=== PATIENT | male | born 1995 | race Caucasian/White ===

== ENCOUNTER 2024-09-01 13:17 | Inpatient (IN) | payer OTHER, SELFPAY ==
[2024-09-01] VITALS (22 sets, daily range): BP systolic 74–161; BP diastolic 88–113; BMI 26.2
--- NOTE | 2024-09-01 08:11 | ED.GENMED ---
History of Present Illness
General
Chief Complaint: Catheter/Tube Problem
Time Seen by Provider: 09/01/24 07:43
History of Present Illness
History of Present Illness:
Patient is a 28-year-old male with history of ESRD on Thursday dialysis., Hypertension, hyperlipidemia, on Eliquis secondary to clotting issues she has had with his catheter/fistulas presenting to the emergency department with
problem with his AV graft. Patient states that he has had many procedures at [facility] for his dialysis. He came here for second opinion. States that he has had 2 right upper extremity specialist that have failed. Last March he had a HD
catheter placed in his right groin that they were using while his AV graft matured. In July he started using his AV graft. They stated that his HD catheter was supposed to be removed next week. However, it also has been having issues with
clotting and heparin did not work. He last received dialysis on Thursday. He denies any chest pain shortness of breath or feeling overloaded.
Past History
Past History
ED Past Medical History: None
ED Past Surgical History: None
Social History
Tobacco: Smoker
Alcohol: None
Phy Exam
Physical Exam
Physical Exam:
GENERAL: in no acute distress
HEENT: normocephalic, extraocular movements intact, moist oral mucosa
NECK: normal inspection
RESPIRATORY: no respiratory distress, clear to auscultation bilaterally
CARDIOVASCULAR: regular rate and rhythm
ABDOMEN/: soft, non-distended, non-tender to palpation, no rebound or guarding
EXTREMITIES: Right upper extremity skin intact with normal appearance. No obvious bulging. No tenderness to palpation. No palpable thrill.
NEUROLOGIC: awake and alert, moves all extremities
SKIN: warm
Course
Orders/Labs/Results
Orders:
Orders
09/01/24 08:11
Complete Blood Count/With Diff Urgent
09/01/24 08:57
Basic Metabolic Panel Urgent
09/01/24 09:37
Electrocardiogram (*1) Urgent
Reason for Study: Other
Other Reason for Exam: hyperkalemia
EKG- Treatment ONCE
09/01/24 09:38
Dextrose 50%-Water [Dextrose 50% Syringe] 12.5 grams IV [id number] PRN
Dextrose 50%-Water [Dextrose 50% Syringe] 25 grams IV NOW STA
Furosemide [Lasix] 20 mg IV NOW STA
Insulin Human Regular [Novolin R] 5 units IV NOW STA
Sodium Zirconium Cyclosilicate [Lokelma] 10 gram PO NOW STA
Bedside Glucose PRE IV Insulin- HyperK+ NOW
09/01/24 10:02
Calcium Gluconate 1,000 mg IV NOW STA
09/01/24 11:00
Records Request [Obtain Records] As Directed
Dates of Information to be Released: 06/08/23-present
Type of Information Requested: Discharge Summary
Consults
Last Office Visit H&P
Radiology Results
Obtain Records from: [facility]
09/01/24 11:08
Bedside Glucose POST IV Insulin- HyperK+ Q1HX2,Q2HX2
09/01/24 11:34
Potassium Urgent
Comment: draw 2 hours after regular insulin IV administration
09/01/24 11:35
Consult Interventional Radiology [IRAD CONSULT] Urgent
Consulting Provider: Melvin Chowdhury
Was physician already notified: Yes
Reason for Consult/Procedure: HD catheter insertion
Acknowledgement that appropriate orders are entered: Yes
09/01/24 11:36
NEPHROLOGY CONSULT Routine
Consulting Provider: Loy Robertson
Was physician already notified: Yes
Vascular Surgery Consult Routine
Consulting Provider: Hector Her
Was physician already notified: Yes
09/01/24 11:37
Admit/Transfer Patient As Directed
Co-Sign Provider:
Level of Care: Inpatient admission
Assign to:: Telemetry
Physician / Group: igor barnhatr
Diagnosis: Clogged graft, ESRF
Reason for Telemetry: Medication for Arrhythmia
Date to Stop Telemetry: 09/03/24
Time to Stop Telemetry: 11:00
Reason for Hospitalization: Clogged graft, ESRF
Expected length of stay greater than two midnights?: Yes
ELOS- Estimated Length of Stay in days: 2
I certify the patient meets the requirements for IP care: Yes
PRN Pain Medication Management As Directed
May give lesser potent ordered pain med per pt: Yes
preference::
Protocol:: Medication orders for pain may be administered in a
manner that supports deferring to patient preference
when the pt is:
- Requesting an ordered lesser potent pain medication.
Least to most potent pain medications are defined
as: acetaminophen < NSAID < tramadol < opioids
(morphine, oxycodone, hydromorphone).
- Requesting a lesser dose of the same medication IF
ORDERED.
- Requesting a less intrusive route of administration
if both routes are prescribed by the provider (PO <
IV).
09/01/24 11:39
Code Status As Directed
Resuscitation Status: Full Code
09/03/24 11:00
DC Protocol for Telemetry ONCE
Abnormal Lab Results
09/01/24 09/01/24 09/01/24
08:11 08:57 11:18
RBC 3.69 L 10^6/uL
(4.70-6.10)
Hgb 11.5 L g/dL
(13.0-18.0)
Hct 35.0 L %
(39.0-52.0)
MCV 94.9 H fL
(80.0-94.0)
MCH 31.2 H pg
(27.0-31.0)
MCHC 32.9 L g/dL
(33.0-37.0)
RDW 15.0 H %
(11.5-14.5)
Potassium 6.3 H* mmol/L
(3.5-5.1)
Chloride 110 H mmol/L
(98-107)
Carbon Dioxide 20 L mmol/L
(22-30)
BUN 83 H mg/dl
(9-20)
Creatinine 7.7 H* mg/dL
(0.7-1.3)
POC Glucose 66 L mg/dl
(70-99)
09/01/24 08:11
Vital Signs
Initial and Last Documented VS:
Initial Vital Signs
Temp Pulse Resp BP Pulse Ox
97.7 F 79 16 161/113 98
09/01/24 07:39 09/01/24 07:39 09/01/24 07:39 09/01/24 07:39 09/01/24 07:39
Last Documented Vital Signs
Temp Pulse Resp BP Pulse Ox
97.7 F 94 20 138/96 100
09/01/24 07:39 09/01/24 11:15 09/01/24 11:15 09/01/24 11:00 09/01/24 10:30
MDM/Problems Addressed
Differential Diagnosis Includes:
Patient is a 28-year-old male with history of ESRD on Thursday dialysis with multiple issues with his dialysis access. Currently his issue is with a failed AV graft as well as a clotted HD catheter. Patient without any overt signs
of volume overload. Will check basic blood work to evaluate metabolic derangements and need for temporary HD catheter. I did discuss with vascular surgery who did recommend touching base with interventional radiology to see if they can declot the
fistula. Will hold off on any further imaging at this time given that there is no palpable thrill.
*Critical Care Note
Total Time (30-74mins, 75-104mins- exclusive of procedures): 37
comment:
Critical care statement: A total of 37 minutes of critical care time was provided for this patient. This includes management of unstable vital signs, evaluation of the patient at bedside, reviewing the patient's pertinent medical records, ordering
and reviewing studies, arranging urgent treatment with development of a management plan, evaluating patient's response to treatment, frequent reassessment, and discussion with consultants. This time was separate from time utilized to perform the
aforementioned documented procedures.
Update Note
Update Note:
Blood work is notable for potassium 6.3. Hyperkalemia protocol ordered. EKG per my interpretation with peaked T waves anteriorly. Will treat with calcium. His BUN is elevated at 83. Bicarb is 20. Patient will need admission for his
hyperkalemia. I did update vascular and discussed with hospitalist who accepted patient. Nephrology also made aware.
vascular will not complete declotting procedure today given the metabolic derangement. Recommending temporary HD catheter placement by nephrology or IR. I did update the hospitalist/nephrology. Unfortunately nephrology unable to place HD
catheter. Hospitalist will reach out to IR.
ED Attending Note
-
Portions of this chart may have been created with voice recognition software.� Occasional wrong word or��sound alike� substitutions may have occurred due to the inherent limitations of voice recognition software.
Discharge Plan
Departure
Patient Disposition: Admit
Date of Disposition: 09/01/24
Time of Disposition: 09:50
Presentation/result/management discussed w/ accepting MD/DO: Hospitalist
Discharge Problem:
Hyperkalemia, Problem with dialysis access
Prescriptions:
No Action
nifedipine 30 mg Tablet Extended Release
30 mg PO DAILY
torsemide 100 mg Tablet
100 mg PO QPM
lisinopril 40 mg Tablet
40 mg PO DAILY
calcium acetate(phosphat bind) 667 mg Capsule
667 mg PO QPM
Eliquis 2.5 mg Tablet
2.5 mg PO BID
atorvastatin 40 mg tablet
40 mg PO DAILY
Referrals:
UNKNOWN - PT DOES,NOT KNOW [Family Provider] -
Interventions
Interventions:
*Risk Screen - Suicide Last Done: 09/01/24 07:39
*General Assessment Last Done: 09/01/24 08:13
*Neglect/Abuse Screening Last Done: 09/01/24 07:39
*ED- Fall Risk Assessment Last Done: 09/01/24 08:13
*ED COVID-19 Vaccine History Last Done: 09/01/24 08:13
PO-Rvnrcv-Gnmdxqjtpr Assessment Last Done: 09/01/24 10:18
ED-Male Genitourinary Assessment Last Done: 09/01/24 10:18
Discharge Date and Time
Print Language: PERSIAN
[2024-09-01 08:33] LABS: % Basophils 0.6 % (0-2); % Eosinophils 2.4 % (0-6); % Immature Granulocytes 0.1 % (0-0.5); % Lymphocytes 25.4 % (20.5-51.1); % Monocytes 6.8 % (1.7-9.3); % Neutrophils 64.7 % (42.2-75.2); Absolute Basophils 0.1 10^3/uL (0-0.2); Absolute Eosinophils 0.2 10^3/uL (0-0.7); Absolute Lymphocytes 2.2 10^3/uL (1.2-3.4); Absolute Monocytes 0.6 10^3/uL (0.1-0.6); Absolute Neutrophils 5.6 10^3/uL (1.4-6.5); Hemoglobin 11.5 g/dL (13.0-18.0); Mean Corp Hgb Conc. 32.9 g/dL (33.0-37.0); Mean Corpuscular Hgb 31.2 pg (27.0-31.0); Mean Corpuscular Volume 94.9 fL (80.0-94.0); Nucleated Red Blood Cells % 0 % (-); Red Blood Cell Count 3.69 10^6/uL (4.70-6.10); White Blood Cell Count 8.6 10^3/uL (4.8-10.8)
[2024-09-01 09:34] LABS: Blood Urea Nitrogen 83 mg/dl (9-20); Calcium 9.6 mg/dl (8.4-10.2); Carbon Dioxide 20 mmol/L (22-30); Chloride 110 mmol/L (98-107); Estimated Creatinine Clearance 11 ml/min; Glucose 97 mg/dl (70-99); Potassium 6.3 mmol/L (3.5-5.1); Sodium 140 mmol/L (135-145); eGFR 9.02
[2024-09-01] MEDS: LOKELMA 10 GRAM PO (09:51)
[2024-09-01] MEDS: LASIX 20 MG IV (09:52)
[2024-09-01] MEDS: DEXTROSE 50% SYRINGE 25 GRAMS IV (09:52)
[2024-09-01] MEDS: NOVOLIN R 5 UNITS IV (10:00)
[2024-09-01] MEDS: CALCIUM GLUCONATE 1000 MG IV (10:11)
[2024-09-01 10:29] LABS: Platelet Count 304 10^3/uL (130-400)
--- NOTE | 2024-09-01 11:01 | HPS.HSE ---
Family Physician
-
Family Physician: NOT KNOW UNKNOWN - PT DOES
Chief Complaint
-
Clotted graft
History of Present Illness
28-year-old male with a past medical history of ESRF on HD, hypertension, hyperlipidemia, and suspected hypercoagulable disorder on Eliquis who presents with a clotted AV graft. Patient gets dialysis Thursday/Thursday/Thursday, his last dialysis
session was on Thursday. He reports having clots at that time, but he was able to complete his dialysis session. He was not able to go to his Thursday dialysis session yesterday. He has a history of repeated clots in his AV fistula, AV graft, as
well as stroke, suspicious for hypercoagulable disorder. He is currently on Eliquis 2.5 mg twice a day, reports missing only 1 dose last week. He does also smoke. Currently he denies chest pain, shortness of breath, palpitations. No fever, no
vomiting. No abdominal pain. No black or bloody stools.
Medical History
Past Medical History
Past Medical History: Reports Other
Additional Past Medical History:
End-stage renal failure on dialysis Thursday/Thursday/Thursday
Hypertension
Hyperlipidemia
Suspected hypercoagulable disorder
Past Surgical History: Reports Other
Additional Past Surgical History:
AV fistula x 2
AV graft right upper extremity
Right groin tunneled catheter
Social History
Tobacco: Smoker (1/2 ppd since 15 y/o)
Alcohol: None
Drug: Marijuana
Living: With Family
Family History
Family History: Other (No family history of renal failure, hypercoagulable disorders)
Allergies / Home Medications
Allergies reflects when Allergies were last updated in [employer].
Home Medications with original date entered in [employer]
Allergy/Medication List:
Allergies
Allergy/AdvReac Type Severity Reaction Status Date / Time
No Known Allergies Allergy Verified 09/01/24 07:41
Home Medications Table - record
�Medication �Instructions �Recorded �Confirmed
apixaban 2.5 mg tablet (Eliquis) 2.5 mg PO BID Blood Clot 09/01/24 09/01/24
Prevention/Tx
atorvastatin 40 mg tablet 40 mg PO DAILY High Cholesterol 09/01/24 09/01/24
calcium acetate(phosphat bind) 667 667 mg PO QPM Kidney Disease 09/01/24 09/01/24
mg capsule
lisinopril 40 mg tablet 40 mg PO DAILY Blood Pressure 09/01/24 09/01/24
nifedipine 30 mg tablet,extended 30 mg PO DAILY Blood Pressure 09/01/24 09/01/24
release
torsemide 100 mg tablet 100 mg PO QPM Fluid 09/01/24 09/01/24
Retention/Swelling
Review of Systems
-
A 12 point ROS was completed and negative except as noted: Yes
Physical Exam
Vital Signs
Vital Signs
Temp Pulse Resp BP Pulse Ox
97.7 F 92 20 144/103 100
09/01/24 07:39 09/01/24 10:12 09/01/24 10:12 09/01/24 10:12 09/01/24 10:12
Physical Exam
General: No Apparent Distress
HEENT: NormoCephalic, Anicteric and Moist mucous membranes
Respiratory: Clear
Cardiac: S1/S2 and Regular Rhythm
GI: Soft, Non Tender and Non Distended
Musculoskeletal: No Clubbing, No Cyanosis and No Edema
Neuro: Awake, Alert and Oriented
Psych: Calm
Laboratory Results
-
09/01/24 08:11
Impression/Plan
-
HPI: 28-year-old male with a past medical history of ESRF on HD, hypertension, hyperlipidemia, and suspected hypercoagulable disorder on Eliquis who presents with a clotted AV graft. Patient gets dialysis Thursday/Thursday/Thursday, his last dialysis
session was on Thursday. He reports having clots at that time, but he was able to complete his dialysis session. He was not able to go to his Thursday dialysis session yesterday. He has a history of repeated clots in his AV fistula, AV graft, as
well as stroke, suspicious for hypercoagulable disorder. He is currently on Eliquis 2.5 mg twice a day, reports missing only 1 dose last week. He does also smoke. Currently he denies chest pain, shortness of breath, palpitations. No fever, no
vomiting. No abdominal pain. No black or bloody stools.
#End-stage renal failure on dialysis Thursday/Thursday/Thursday
Consult IR for temporary HD catheter insertion
Consult nephrology, dialysis as per nephrology
Obtain records from [facility], continue calcium acetate
#Hyperkalemia
Potassium 6.3, EKG without any changes
Status post IV insulin, dextrose, and Lokelma in the ER
Will receive dialysis after HD catheter insertion
#Clotted AV graft
Appreciate vascular surgery input, for probable OR tomorrow
#Suspected hypercoagulable state on Eliquis
Hold Eliquis
IV heparin drip
Consult hematology
#Essential hypertension
Continue lisinopril 40 mg daily, nifedipine 30 mg daily
#Hyperlipidemia
Continue statin
DVT prophylaxis�IV heparin drip
Full code
Total time spent to see the patient on the floor, examine the patient, review data and lab results, discuss treatment plan with patient, nursing staff around 78 minutes.
[2024-09-01] MEDS: DEXTROSE 50% SYRINGE 12.5 GRAMS IV (11:20)
[2024-09-01 11:21] LABS: Glucose - Point of Care 66 mg/dl (70-99)
--- NOTE | 2024-09-01 11:46 | CON.VAS ---
Consultation
Consultation Request
Performing Provider: Arden
Reason for Consultation: Thrombosed AV graft
Medical History
-
Chief Complaint: 'Clotted fistula'
History of Present Illness:
28-year-old male with past medical history end-stage renal disease on HD (for about a year), longstanding uncontrolled hypertension, polysubstance abuse, CVA in 2022. Patient presents to the ER today for 'clotting issue' with his AV graft. Patient
gets dialysis Thursday, Thursday, Thursday. Patient had last treatment on Thursday where he states they were having some 'clotting issues' which were resolved and he received a full treatment. That was his last treatment. Patient has had 'many
procedures' at [facility] for dialysis needs. He states that he has had 2 right upper extremity fistulas fail. Last March had an HD catheter placed to the right groin. His most recent surgery was for his right upper extremity graft which is what
they began using at dialysis in July. It has worked well until this week. The patient his right groin catheter is also clotted. Patient is left-hand dominant. Patient is on Eliquis 2.5 mg p.o. twice daily which she states he only missed 1
dose of last week.
Vascular consult for thrombosed AV graft. Patient seen at bedside this a.m. with Dr. Her.
Past Medical History
Past Medical History: Other (End-stage renal disease on HD, longstanding uncontrolled hypertension, polysubstance abuse, CVA, clotting disorder?)
Past Surgical History: Other (AV fistula x 2, AV graft right upper extremity, tunneled catheter right groin)
Social History
Tobacco: Smoker
Drug: Other (Methamphetamines, cocaine unsure if current user)
Family History
Family History: Reviewed & Not Pertinent
Allergies / Home Medications
Allergy/AdvReac Type Severity Reaction Status Date / Time
No Known Allergies Allergy Verified 09/01/24 07:41
�Medication �Instructions �Recorded �Confirmed �Type
apixaban 2.5 mg tablet (Eliquis) 2.5 mg PO BID Blood Clot 09/01/24 09/01/24 History
Prevention/Tx
atorvastatin 40 mg tablet 40 mg PO DAILY High Cholesterol 09/01/24 09/01/24 History
calcium acetate(phosphat bind) 667 667 mg PO QPM Kidney Disease 09/01/24 09/01/24 History
mg capsule
lisinopril 40 mg tablet 40 mg PO DAILY Blood Pressure 09/01/24 09/01/24 History
nifedipine 30 mg tablet,extended 30 mg PO DAILY Blood Pressure 09/01/24 09/01/24 History
release
torsemide 100 mg tablet 100 mg PO QPM Fluid 09/01/24 09/01/24 History
Retention/Swelling
Review of Systems
-
History Source: Patient
All other systems: Negative unless noted
Vascular: Reports Other; Denies Leg Pain / Claudication, Numbness or Tingling
Skin: Reports No Symptoms
Physical Exam
Vital Signs
Temp Pulse Resp BP Pulse Ox
97.7 F 94 20 138/96 100
09/01/24 07:39 09/01/24 11:15 09/01/24 11:15 09/01/24 11:00 09/01/24 10:30
Lab Results
09/01/24 08:11
Physical Exam
General: No Apparent Distress
HEENT: Normocephalic and Atraumatic
Respiratory: Non Labored Respirations
Cardiac: Other (Palpable radial pulses); Negative JVD
Skin: Warm
Neuro: Awake, Alert and Oriented
Psych: Calm
Assessment / Plan
-
Plan/ Thrombosed right upper extremity AV graft. Repeated thrombosis of AV access raises concern for clotting disorders. Patient also does note that he has had issues with clotting of catheters. I think he would benefit from seeing hematology for
a full hypercoagulable workup given his young age and repeated thromboses of access. Discussed with him that we could try to thrombectomize the AV access, but no guarantee that this would be successful, and that it would have a long-lasting durable
outcome. Discussed, however, that based on his metabolic derangements currently, I would favor not taking him to the operating room for attempted thrombectomy without prior hemodialysis. His BUN is over 80, potassium is over 6. I think he would
benefit from optimization. Discussed with hospitalist. Discussed with emergency room staff. Recommend he gets dialyzed (temporary catheter if needed). And then we can try to thrombectomize tomorrow. I did clearly discuss the potential that this
would not be salvageable this graft. Discussed also the possibility of repeated thromboses. Discussed technical aspects of the procedure. Discussed also contraindications to anticoagulation/catheter directed thrombolysis. He understands all.
Wishes to proceed. Will await optimization from a renal perspective. And then likely plan for thrombectomy tomorrow endovascular if patient optimized.
Data Reviewed
-
Labs: Labs Reviewed by me
--- NOTE | 2024-09-01 11:50 | W.PN.UPDATE ---
Update Note
Progress Note Update
Seen and evaluated in the emergency room. 28-year-old male with history of end-stage renal disease on hemodialysis (patient notes longstanding hypertension as the etiology of renal failure) for approximately 1 year. Has had multiple accesses in
the right upper extremity (he is left-hand dominant). He failed to vein access procedures. Subsequently underwent an AV graft about a month ago in the right upper extremity. This was successful and was working at dialysis most recently on Thursday
of this week 3 days ago. However yesterday went to hemodialysis and was noted to have clotted the AV graft. Patient notes that they did have some clotting on Thursday but he was able to complete dialysis. That is the last day he completed dialysis
was Thursday of this week 3 days ago. As noted he is [id number]. Denies any significant bleeding risk factors (no recent major surgeries, no GI bleeds, no intracranial bleeds, though he does have a history of embolic strokes in 2022).
Patient does note history of tobacco use (active tobacco use). Based on prior admission notes, patient does have history of methamphetamine use/polysubstance abuse.
On exam/he is in no acute distress. Breathing is unlabored. Right upper extremity with prior healed incisions from fistula creation is. Upper arm AV graft palpable graft but no thrill in the graft. No pulsatility. Hand is warm with palpable
radial pulse. Left hand also warm with palpable radial pulse. Feet also warm with palpable pedal pulses.
Plan/ Thrombosed right upper extremity AV graft. Repeated thrombosis of AV access raises concern for clotting disorders. Patient also does note that he has had issues with clotting of catheters. I think he would benefit from seeing hematology for
a full hypercoagulable workup given his young age and repeated thromboses of access. Discussed with him that we could try to thrombectomize the AV access, but no guarantee that this would be successful, and that it would have a long-lasting durable
outcome. Discussed, however, that based on his metabolic derangements currently, I would favor not taking him to the operating room for attempted thrombectomy without prior hemodialysis. His BUN is over 80, potassium is over 6. I think he would
benefit from optimization. Discussed with hospitalist. Discussed with emergency room staff. Recommend he gets dialyzed (temporary catheter if needed). And then we can try to thrombectomize tomorrow. I did clearly discuss the potential that this
would not be salvageable this graft. Discussed also the possibility of repeated thromboses. Discussed technical aspects of the procedure. Discussed also contraindications to anticoagulation/catheter directed thrombolysis. He understands all.
Wishes to proceed. Will await optimization from a renal perspective. And then likely plan for thrombectomy tomorrow endovascular if patient optimized.
[2024-09-01 11:59] LABS: Potassium 5.3 mmol/L (3.5-5.1)
[2024-09-01 12:16] LABS: Glucose - Point of Care 83 mg/dl (70-99)
[2024-09-01 13:13] LABS: APTT 36.3 Sec (23.4-35.0)
[2024-09-01] MEDS: ANCEF 10 IV (14:05)
[2024-09-01 14:45] LABS: INR 0.89; PT 12.6 Sec (11.4-14.6)
[2024-09-01 15:19] LABS: Glucose - Point of Care 102 mg/dl (70-99)
--- NOTE | 2024-09-01 16:30 | W.PN.UPDATE ---
Update Note
Progress Note Update
Pt would like his Mother Rosalind added to his contacts, her cell phone number: [phone]
He is also aware that his Father Javed Macias is inpatient here as well and would like him added to his contact list.
--- NOTE | 2024-09-01 17:03 | W.CON.NEPH ---
Consultation
-
Date/Time Consultation Requested: September 01, 2024 at 11:30 AM
Date/Time Consultation Performed: September 01, 2024 at 4 PM
Requesting Provider: Dr. Calhoun
Performing Provider: Dr. Robertson
Reason for Consultation: ESRD
Medical History
-
Chief Complaint: ESRD
History of Present Illness:
28-year-old male with past medical history end-stage renal disease on HD (for about a year), longstanding uncontrolled hypertension, polysubstance abuse, CVA in 2022. Patient presents to the ER today with clotted AV graft. Patient gets dialysis
Thursday, Thursday, Thursday. Had a [facility] dialysis unit near [facility].
His last treatment was Thursday he has a temporary femoral dialysis catheter which apparently clotted.
Renal consult for end-stage renal disease
Past Medical History
28-year-old male with past medical history end-stage renal disease on HD (for about a year), longstanding uncontrolled hypertension, polysubstance abuse, CVA in 2022.
Social History
Tobacco: Non-Smoker
Alcohol: None
Family History
No renal disease
Allergies / Home Medications
Allergy/AdvReac Type Severity Reaction Status Date / Time
No Known Allergies Allergy Verified 09/01/24 07:41
�Medication �Instructions �Recorded �Confirmed �Type
apixaban 2.5 mg tablet (Eliquis) 2.5 mg PO BID Blood Clot 09/01/24 09/01/24 History
Prevention/Tx
atorvastatin 40 mg tablet 40 mg PO DAILY High Cholesterol 09/01/24 09/01/24 History
calcium acetate(phosphat bind) 667 667 mg PO QPM Kidney Disease 09/01/24 09/01/24 History
mg capsule
lisinopril 40 mg tablet 40 mg PO DAILY Blood Pressure 09/01/24 09/01/24 History
nifedipine 30 mg tablet,extended 30 mg PO DAILY Blood Pressure 09/01/24 09/01/24 History
release
torsemide 100 mg tablet 100 mg PO QPM Fluid 09/01/24 09/01/24 History
Retention/Swelling
Review of Systems
-
No chest pain or shortness of breath nausea or vomiting
All other systems: Negative unless noted
Physical Exam
Vital Signs
Vital Signs
Temp Pulse Resp BP Pulse Ox
97.8 F 70 13 137/95 99
09/01/24 13:40 09/01/24 15:45 09/01/24 14:55 09/01/24 15:30 09/01/24 15:45
Lab Results
WBC 8.6 10^3/uL (4.8-10.8) 09/01/24 08:11
RBC 3.69 10^6/uL (4.70-6.10) L 09/01/24 08:11
Hgb 11.5 g/dL (13.0-18.0) L 09/01/24 08:11
Hct 35.0 % (39.0-52.0) L 09/01/24 08:11
Plt Count 304 10^3/uL (130-400) 09/01/24 08:11
Sodium 140 mmol/L (135-145) 09/01/24 08:57
Potassium 5.3 mmol/L (3.5-5.1) H 09/01/24 11:34
Chloride 110 mmol/L (98-107) H 09/01/24 08:57
Carbon Dioxide 20 mmol/L (22-30) L 09/01/24 08:57
BUN 83 mg/dl (9-20) H 09/01/24 08:57
Creatinine 7.7 mg/dL (0.7-1.3) H* 09/01/24 08:57
eGFR 9.02 09/01/24 08:57
Glucose 97 mg/dl (70-99) 09/01/24 08:57
Calcium 9.6 mg/dl (8.4-10.2) 09/01/24 08:57
Physical Exam
General no acute distress
HEENT no cephalic atraumatic extraocular muscle intact no scleral icterus no JVD neck supple
lungs clear to auscultation bilateral
heart regular S1-S2 positive
abdomen soft nontender positive bowel sounds
extremities no edema pulses present bilateral
Neurologically nonfocal alert and oriented x 3
Skin no lesions no abrasions no petechiae
Psych normal affect no bizarre behavior
Data Reviewed
-
Labs: Labs Reviewed by me, Discussed with Physician and Discussed with Patient
Assessment/Plan
-
28-year-old male with past medical history end-stage renal disease on HD (for about a year), longstanding uncontrolled hypertension, polysubstance abuse, CVA in 2022. Patient presents to the ER today with clotted AV graft. Patient gets dialysis
Thursday, Thursday, Thursday. Had a [facility] dialysis unit near [facility].
His last treatment was Thursday he has a temporary femoral dialysis catheter which apparently clotted.
Impression.
ESRD. Thursday
Clotted right AV brachiocephalic shunt.
Temporary femoral catheter clotted.
Hypertension.
History of polysubstance abuse.
Plan.
Status post temporary cath exchange via IR.
Dialysis ordered today for 2.5 hours abbreviated treatment.
Ultrafiltration 2 L.
Dialysis again tomorrow which is his regular schedule.
Vascular noted possible thrombectomy tomorrow
[2024-09-01] MEDS: HEPARIN 25000 UNITS/250 ML IV (18:19)
[2024-09-01] MEDS: PHOSLO 667 MG PO (18:19)
--- NOTE | 2024-09-01 18:30 | PTCARENOTE ---
Patient admitted into room 2125. Patient AAOx3, flat, angry and agitated at times, on HD through R femoral line. R upper ext restriction for AV graft, patient ordered NPO for thrombectomy with vascular in AM but came up to floor with boxed lunch.
This RN made vascular and MD aware, stated okay for NPO at midnight for procedure tomorrow. Hep gtt initiated per MD order at 12 ml/hr, PTT ordered, vascular updated, stated keep hep gtt infusing until call for OR tomorrow. Patient flagged drug
abuse screening on admission, states taking prescribed 5 mg oxycodone more frequently/at higher doses than ordered; states hx methamphetamine and marijuana use. MD made aware per protocol. Blood sugar on admission 103, vitals taken by des iglesias.
HD session in progress.
[2024-09-01 18:45] LABS: Glucose - Point of Care 103 mg/dl (70-99)
--- NOTE | 2024-09-01 20:11 | PTCARENOTE ---
Patient angry and agitated towards HD nurse during session, yelling, uncooperative with care, taking tele leads off, threatening to leave AMA if not given food per HD nurse. Code purple called.
--- NOTE | 2024-09-01 20:14 | W.PN.UPDATE ---
Update Note
Progress Note Update
Code Purple
Patient start yelling, verbally aggressive, using inappropriate language towards the dialysis nurse. Patient start to get agitated when the nurse was checking the dialysis tube/ access and he accused her that she was looking to his private area. He
also yelling as he wants to eat. Patient received food box around 6:30pm per nursing staff. Staff will provide another food box.
Spoke to the patient and he agrees to cooperate with the staff respectfully as needed. No other interventions needed at this time.
[2024-09-02] VITALS (9 sets, daily range): BP systolic 115–134; BP diastolic 82–103; BMI 24.9
[2024-09-02 03:43] LABS: APTT 34.2 Sec (23.4-35.0)
[2024-09-02] MEDS: HEPARIN 5200 UNITS IV (04:01)
--- NOTE | 2024-09-02 04:24 | PTCARENOTE ---
Pt angry and uncooperative with POC, removing tele leads and despite repetitive education refuses to keep them on. Heparin infusing as ordered, ptt scheduled to be drawn at 0030 was not processed until 0330 due to pt not being cooperative or
remaining still during blood draw, much encouragement and education provided to pt to allow staff to redraw in order to assess ptt at approx 0330. machine scallop cutter JOSESITO made aware.
--- NOTE | 2024-09-02 07:27 | PTCARENOTE ---
Patient to OR for R AV graft thrombectomy. Chart transported with patient, vitals taken prior to transport. Hep gtt on hold and disconnected from patient per vascular. AM labs not drawn before transport, OR nurse made aware.
--- NOTE | 2024-09-02 07:35 | W.SUR.PREOP ---
Pre-Operative Surgical Note
-
I have examined this patient prior to the performance of the scheduled procedure.
The patient's condition is unchanged from the time of the current History and
Physical and the patient is able to undergo the scheduled procedure.
Discussed again with patient procedure, potential outcomes. Discussed risks/benefits/alternatives. Confirm no contraindications to receiving catheter directed thrombolysis within the graft. Patient understands all wishes to proceed.
--- NOTE | 2024-09-02 08:33 | OR.RPT ---
Operative Report
Operative Report
PROCEDURE DATE: 09/02/2024
Preoperative diagnosis:
1. End-stage renal disease on hemodialysis.
2. Thrombosed right upper extremity AV graft.
3. Failed prior upper extremity AV access due to thromboses.
Postoperative diagnosis: Same
Procedure:
1. Duplex assisted cannulation of right upper extremity AV graft and placement of 6 Canadian sheaths in both peripheral and central facing directions.
2. Fistulogram and central venogram.
3. AngioJet pharmacomechanical thrombectomy of thrombosed right upper extremity AV graft
4. Balloon angioplasty of venous anastomotic stenosis with 7 mm angioplasty balloon.
5. Placement of Zilver PTX self-expanding nitinol stent across venous anastomosis with 8 mm x 4 cm stent.
6. Balloon angioplasty of proximal outflow vein/arterial anastomotic stenosis with 5 mm angioplasty balloon.
7. Supervision and interpretation.
Surgeon: Arden
Correspondence Section Supervisor: None
Complications: None
Anesthesia: General, LMA
Fluoroscopy:
10.4 min
15 mGy
2.86 Gy.cm2
Indications for procedure:
Thrombosed right upper extremity AV graft. Patient with history of repeated thrombotic AV accesses. Risk/benefits/alternatives of thrombectomy of AV graft fully discussed. Patient understood all wished to proceed.
Description of procedure:
Patient was identified, brought to the operating room. Placed on the table in the supine position. After the adequate administration of anesthesia, the patient was prepped and draped in the standard surgical fashion. A standard preoperative
timeout was undertaken and everybody was in agreement with the plan.
Under duplex assisted guidance I initially punctured the graft in a central facing direction in the distal upper arm using a micropuncture kit. This was slightly challenging, and I could not tell but the graft seems slightly thick-walled suggesting
that this was an early access graft. I was able to finally get needle and wire into the graft. I then advanced a 6 Canadian sheath over a 0.035 inch wire. My wire kept getting held up at what appeared to be the distal anastomosis/venous
anastomosis. I now used a glide catheter and a Glidewire and with moderate amount of difficulty was finally able to traverse that area of likely severe stenosis. I then gained wire access and then catheter access into the central venous system.
Central venogram demonstrated no significant central venous stenosis and patency of the central vein. I then gain wire access into the IVC and then exchanged for a 0.035 inch Storq wire.
Next under duplex assisted guidance I punctured the graft in a peripheral facing direction. I then advanced a 6 Canadian sheath over a 0.035 inch wire. Using a glide catheter and a flopping of hydrophilic wire to gain wire access across the
anastomosis into the proximal artery. I had noted on ultrasound that there appeared to be a high takeoff of the radial artery which was somewhat small. It appeared that the graft was sewn into the smaller artery. Now I performed angiogram through
the artery which did confirm high takeoff of the artery. In addition the artery generally appeared vasospasm/diseased. Especially the outflow beyond the graft anastomosis appeared very diseased. But even the inflow is somewhat of a diseased
artery/small artery. At this point I exchanged again for a 0.035 inch Storq wire.
Now that I had sheath access facing both directions with stable wire access, I then used an AngioJet Solent catheter which is power pulse enabled. I then power pulse spray 10 mg of tPA through the thrombosed AV graft (from both arterial sided and
venous sheath accesses). I let this dwell for 20 minutes. After palpable spray, I then used thrombectomy mode with the AngioJet to thrombectomize the graft. Completion angiogram demonstrated resolution of almost all the thrombus. There was 1
focal area of stenosis with possible little bit of thrombus at the venous anastomosis. This is where my wire had been getting held up initially. I now ballooned that with a 7 mm angioplasty balloon. Completion demonstrated reasonable resolution
of the stenosis, but still some residual thrombus there. Given the residual thrombus, I felt that I should place a stent there to trap the thrombus. Therefore using 8 mm x 4 cm Only [place] Zilver PTX stent. This was post angioplastied with a 7 mm
balloon. Completion angiogram demonstrated excellent result at that venous anastomosis. There is brisk flow through the fistula. Now I imaged again through the arterial sided sheath/advancing a glide catheter into the inflow artery. As I noted
earlier the inflow artery was severely diseased/small artery. Therefore I felt that this is a second point of failure (venous anastomosis being the other 1). I ballooned a severe stenosis twice in the perianastomotic/arterial side of the graft
with a 5 mm angioplasty balloon. There is still mild residual stenosis, but more concerning was the inflow artery the nature of it to be very small. However I felt there is nothing further to do endovascularly here. (Nothing further to do
urgently from a surgical standpoint either). Therefore at this point the wires and catheters were all withdrawn. Of note the patient had been given 5008 symmetries heparin during the procedure. I now placed 4-0 Monocryl pursestring sutures around
the sheath entry sites and tied these down as the sheaths were withdrawn. Manual pressure was also applied to the puncture site. Hemostasis was fully achieved. The patient tolerated procedure well.
The patient tolerated procedure well.
[2024-09-02] MEDS: LIPITOR 40 MG PO (10:45)
--- NOTE | 2024-09-02 11:29 | PTCARENOTE ---
Patient received back into 2125 from PACU s/p RUE thrombectomy at 1030. Vitals taken, neurovascular check on RUE by this RN; fistula w/o bruit or thrill, doppler radial pulse, pt c/o mild pain in RUE. Patient with HD scheduled for 1200, stated to
this RN he is not staying for HD and is leaving now. Patient took tele monitor off and dressed in clothes. This RN communicated with MD, vascular and nephro; R femoral tunneled catheter kept in place per vascular and nephro. MD, vascular, and CM at
beside with this RN, AMA paperwork signed by patient and MD after education on risks of leaving by MD and vascular. Patient continuing to state he wants to leave despite adverse effects of missing scheduled HD session today. L hand IV removed.
Patient states his father is patient in hospital; father in room 2116, this RN discussed with father's RN who stated it is okay for patient to visit with father at bedside. Patient escorted to room 2116 by this RN. HD nurse made aware of patient
leaving.
[2024-09-02 12:48] LABS: Hepatitis B Surface Antigen Negative (Negative)
--- NOTE | 2024-09-02 13:50 | W.PN.UPDATE ---
Update Note
Progress Note Update
Notified by nursing staff patient wishes to leave AGAINST MEDICAL ADVICE.
Discussed with patient, the risks and benefits of leaving AGAINST MEDICAL ADVICE.
Urged patient to stay to receive dialysis today, and case management can set up outpatient dialysis chair.
Patient refuses, states he is tired of being in the hospital, and wants to leave.
Informed patient he could if he leaves without getting dialysis, and without having outpatient dialysis set up.
Patient reports understanding that he could , and wishes to leave anyway.
AMA form signed.
--- NOTE | 2024-09-02 15:33 | CM ---
Patient seen at bedside
IA completed
Lives between his mom at times in [place] and his dad in [place]
Independent, denies VN/Rehab, drives
has been on dialysis a year and a half at [facility] in [place] [facility] chair 1:30pm
Patient signed out AMA after even after discussion from hospitalist & vascular WINCH RUNNER
--- NOTE | 2024-09-02 16:15 | W.DCSUMMARY ---
Discharge Summary
Discharge Data
Date of Admission: 09/01/24
Date of Discharge: 09/02/24
-
Pending Results: No
Hospital Course
Discharge diagnosis:
End-stage renal failure on dialysis
Hyperkalemia
Clotted graft
Medical noncompliance
Suspected hypercoagulable state on Eliquis
Essential hypertension
Hyperlipidemia
Consults: Nephrology, vascular surgery, hematology
Procedures:
09/02/2024
1. Duplex assisted cannulation of right upper extremity AV graft and placement of 6 Greenlandic sheaths in both peripheral and central facing directions.
2. Fistulogram and central venogram.
3. AngioJet pharmacomechanical thrombectomy of thrombosed right upper extremity AV graft
4. Balloon angioplasty of venous anastomotic stenosis with 7 mm angioplasty balloon.
5. Placement of Zilver PTX self-expanding nitinol stent across venous anastomosis with 8 mm x 4 cm stent.
6. Balloon angioplasty of proximal outflow vein/arterial anastomotic stenosis with 5 mm angioplasty balloon.
Hospital course:
28-year-old male with a past medical history of ESRF on HD M//, hypertension, hyperlipidemia, and suspected hypercoagulable disorder on Eliquis was admitted for clotted AV graft. Patient was seen in conjunction with nephrology and vascular
surgery. He has a right common femoral tunneled dialysis catheter, this was exchanged by IR. Patient received dialysis with this catheter.
Patient had thrombectomy on 09/02/2024. Postoperatively, he requested to leave AMA. Discussed with him that he needs to stay to get dialysis today, as well as have outpatient dialysis set up. Patient adamantly refused, despite being told that he
could . He subsequently left AGAINST MEDICAL ADVICE.
Disposition: AGAINST MEDICAL ADVICE
Discharge Plan
-
Patient Disposition: Against Medical Advice
Referrals:
Hector Her MD [Active] - (Call for follow-up as needed)
UNKNOWN - PT DOES,NOT KNOW [Family Provider] -
Prescriptions:
No Action
nifedipine 30 mg Tablet Extended Release
30 mg PO DAILY
torsemide 100 mg Tablet
100 mg PO QPM
lisinopril 40 mg Tablet
40 mg PO DAILY
calcium acetate(phosphat bind) 667 mg Capsule
667 mg PO QPM
Eliquis 2.5 mg Tablet
2.5 mg PO BID
atorvastatin 40 mg tablet
40 mg PO DAILY
Discharge Date and Time
Discharge Date/Time: 09/02/24 11:41
Print Language: FRISIAN
== END 2024-09-02 11:41 | disposition left against medical advice (07) | DRG 252 ==
LOC: 2 NORTH 13:17
PROVIDERS: Radiology Vascular & Interventional Radiology; Surgery Vascular Surgery; ADMITTING PHYSICIAN Family Medicine; CONSULT PHYSICIAN Internal Medicine Nephrology; EMERGENCY PHYSICIAN Student in an Organized Health Care Education/Training Program; OTHER PHYSICIAN Nurse Practitioner Acute Care
PROC: 0J2WXYZ Change Other Device in Lower Extremity Subcutaneous Tissue and Fascia, External Approach (ICD-10-PCS; 2024-09-01)
PROC: 05793DZ Dilation of Right Brachial Vein with Intraluminal Device, Percutaneous Approach (ICD-10-PCS; 2024-09-02)
PROC: 03773ZZ Dilation of Right Brachial Artery, Percutaneous Approach (ICD-10-PCS; 2024-09-02)
PROC: 05C93ZZ Extirpation of Matter from Right Brachial Vein, Percutaneous Approach (ICD-10-PCS; 2024-09-02)
PROC: 3E03317 Introduction of Other Thrombolytic into Peripheral Vein, Percutaneous Approach (ICD-10-PCS; 2024-09-02)
DX: T82.868A Thrombosis due to vascular prosthetic devices, implants and grafts, initial encounter (principal); N18.6 End stage renal disease; I12.0 Hypertensive chronic kidney disease with stage 5 chronic kidney disease or end stage renal disease; D68.9 Coagulation defect, unspecified; D68.69 Other thrombophilia; Y83.1 Surgical operation with implant of artificial internal device as the cause of abnormal reaction of the patient, or of later complication, without mention of misadventure at the time of the procedure; Y92.9 Unspecified place or not applicable; E78.00 Pure hypercholesterolemia, unspecified; F19.10 Other psychoactive substance abuse, uncomplicated; F17.210 Nicotine dependence, cigarettes, uncomplicated; E87.5 Hyperkalemia; R45.1 Restlessness and agitation; Z99.2 Dependence on renal dialysis; Z79.01 Long term (current) use of anticoagulants; Z86.73 Personal history of transient ischemic attack (TIA), and cerebral infarction without residual deficits
CPT/HCPCS: 36581; 77001; 80048; 82962; 84132; 85025; 85610; 85730; 87070; 87340; 93005; 96374; 96375; 99152; 99153; 99291; C1750; C1769; G0257; J2997

== ENCOUNTER 2024-09-20 09:35 | Inpatient (IN) | payer OTHER, SELFPAY ==
[2024-09-19 21:36] VITALS: BP 99/57
[2024-09-19 22:18] LABS: % Basophils 0.7 % (0-2); % Immature Granulocytes 0.8 % (0-0.5); % Lymphocytes 22.8 % (20.5-51.1); % Monocytes 7.4 % (1.7-9.3); % Neutrophils 66.3 % (42.2-75.2); Absolute Basophils 0.1 10^3/uL (0-0.2); Absolute Eosinophils 0.2 10^3/uL (0-0.7); Absolute Immature Granulocytes 0.1 10^3/uL (0-0.05); Absolute Lymphocytes 2.4 10^3/uL (1.2-3.4); Absolute Monocytes 0.8 10^3/uL (0.1-0.6); Absolute Neutrophils 6.9 10^3/uL (1.4-6.5); Hematocrit 33.9 % (39.0-52.0); Hemoglobin 11.3 g/dL (13.0-18.0); Mean Corp Hgb Conc. 33.3 g/dL (33.0-37.0); Mean Corpuscular Hgb 30.6 pg (27.0-31.0); Mean Corpuscular Volume 91.9 fL (80.0-94.0); Nucleated Red Blood Cells % 0.4 % (-); Platelet Count 300 10^3/uL (130-400); Red Blood Cell Count 3.69 10^6/uL (4.70-6.10); Red Cell Dist. Width 14.3 % (11.5-14.5); White Blood Cell Count 10.4 10^3/uL (4.8-10.8)
[2024-09-19 22:35] LABS: ALT (SGPT) 24 U/L (0-50); AST (SGOT) 24 U/L (17-59); Albumin 4.7 g/dl (3.5-5.0); Alkaline Phosphatase 97 U/L (38-126); Chloride 100 mmol/L (98-107); Potassium 4.1 mmol/L (3.5-5.1); Sodium 139 mmol/L (135-145); Total Bilirubin 0.5 mg/dl (0.2-1.3); eGFR 15.42
[2024-09-19 22:40] LABS: Troponin I 0.016 ng/ml
[2024-09-19 22:46] LABS: Blood Urea Nitrogen 39 mg/dl (9-20); Calcium 9.5 mg/dl (8.4-10.2); Carbon Dioxide 22 mmol/L (22-30); Glucose 79 mg/dl (70-99); Total Protein 7.6 g/dl (6.3-8.2)
[2024-09-19 23:00] VITALS: BP 83/53
[2024-09-19 23:41] VITALS: BP 91/62
[2024-09-19 23:48] LABS: Glucose - Point of Care 87 mg/dl (70-99)
[2024-09-20] VITALS (11 sets, daily range): BP systolic 81–124; BP diastolic 61–85; PULSE 82–103
[2024-09-20] MEDS: NSS 250 IV ×2 (00:13→02:04)
--- NOTE | 2024-09-20 00:37 | ED.GENMED ---
History of Present Illness
General
Chief Complaint: Fainting/Passed Out
Source: patient
Exam Limitations: none
Time Seen by Provider: 09/19/24 23:59
Nursing documentation reviewed up to this point in time: agreed with
History of Present Illness
History of Present Illness:
Patient with history of end-stage renal disease on hemodialysis (Thursday, Thursday, Thursday), presents to ED secondary to recurrent syncopal episode, while he was walking with his housemate this evening. Patient reports feeling lightheaded prior to
passing out. Patient denies head injury. Denies preceding chest pain or palpitations. Denies shortness of breath. Denies nausea or vomiting. Patient does report having received full session of dialysis today. Per patient, there was no excess
fluid taken out today. Of note, patient states that he has had number of recurrent similar syncopal episodes, secondary to low blood pressure. Patient's blood pressure has been fluctuating recently when checked at doctor's office. Denies recent
change in medications or diet. Denies recent illness. At the time of evaluation, patient has no complaints.
Past History
Past History
ED Past Medical History: None
ED Past Surgical History: None
Social History
Tobacco: Smoker
Alcohol: None
Review of Systems
Review of Systems
Allergies reviewed?: Yes
All Other Systems: ROS reviewed and negative except as documented in HPI and ROS
Constitutional: Reports no symptoms; Denies fever or chills
EENT: Reports no symptoms
Respiratory: Reports no symptoms; Denies trouble breathing
Cardiac: Reports syncope; Denies chest pain, diaphoresis or palpitations
ABD/GI: Reports no symptoms; Denies nausea or vomiting
Musculoskeletal: Reports no symptoms
Skin: Reports no symptoms
Neurological: Reports dizzy; Denies headache
Phy Exam
Physical Exam
Physical Exam:
Physical Exam
General: no apparent distress, not acutely ill. afebrile
Head: nc/at. eomi
Neck: supple. normal range of motion.
Heart: s1/s2 regular rate and rhythm, no murmur
Lungs: no acute respiratory distress. clear bilaterally
Abdomen: normal bowel sounds. not tender.
Neuro: alert and oriented x 3. no focal neurological deficits
Skin: no rash
Psychiatric: well kept. interactive and cooperative
Extremities: no edema. no calf tenderness.
Course
Orders/Labs/Results
Orders:
Orders
09/19/24 21:35
Electrocardiogram (*1) Urgent
Reason for Study: Syncope
EKG- Treatment ONCE
09/19/24 22:09
Complete Blood Count/With Diff Urgent
Comprehensive Metabolic Panel Urgent
Troponin I Urgent
09/20/24 00:06
0.9% Sodium Chloride 250 ml [Nss] 250 ml IV BOLUS
09/20/24 01:53
0.9% Sodium Chloride 250 ml [Nss] 250 ml IV BOLUS
09/20/24 02:38
Admit/Transfer Patient As Directed
Co-Sign Provider:
Level of Care: Observation services
Assign to:: Telemetry
Physician / Group: hospitalist
Diagnosis: syncope
Patient Condition: Fair
Reason for Telemetry: Syncope
Date to Stop Telemetry: 09/22/24
Time to Stop Telemetry: 11:00
PRN Pain Medication Management As Directed
May give lesser potent ordered pain med per pt: Yes
preference::
Protocol:: Medication orders for pain may be administered in a
manner that supports deferring to patient preference
when the pt is:
- Requesting an ordered lesser potent pain medication.
Least to most potent pain medications are defined
as: acetaminophen < NSAID < tramadol < opioids
(morphine, oxycodone, hydromorphone).
- Requesting a lesser dose of the same medication IF
ORDERED.
- Requesting a less intrusive route of administration
if both routes are prescribed by the provider (PO <
IV).
09/20/24 02:39
Code Status As Directed
Resuscitation Status: Full Code
09/20/24 03:09
Acetaminophen [Tylenol] 650 mg PO Q4HPRN PRN
Ondansetron Injectable [Zofran] 4 mg IV Q6HPRN PRN
09/20/24 03:09
VTE Contraindication Routine
VTE Mechanical Device Contraindication: Medical Contraindication
Pharmocologic Contraindication: Medical Contraindication
Activity As Directed
Activity Level: With Assistance
Neurological Checks As Directed
Frequency: Per unit guidelines
Orthostatic Vital Signs As Directed
Orthostatic VS Frequency: Daily
Vital Signs As Directed
Frequency: Per unit guidelines
Pulse Ox/spot Check [RESP] Routine
Quantity: 1
09/20/24 03:23
BMP [Basic Metabolic Panel] Routine
Troponin I Routine
09/20/24 04:00
Flush (0.9% Sodium Chloride) [Flush (Nss)] See Dose Instructions IV PER PROTOCOL
09/20/24 04:47
Echo 2D MMode Color/Doppler [Echo 2D MMode Color/Doppler] Routine
Reason for Study: syncope
NEPHROLOGY CONSULT Routine
Consulting Provider: Loy Robertson
Was physician already notified: No
Reason for consult: HD M/W/F, here with syncope
09/20/24 04:48
Consult Notification Routine
Specialty to Notify: Nephrology
09/20/24 Breakfast
Potassium, 2 Gram
At Your Request: Full Participation
Does patient need a safe tray?: No
Low Potassium: Sodium, 4 Gram
Comment: PT IN ED22
09/20/24 08:00
Apixaban [Eliquis] 2.5 mg PO BID
Atorvastatin [Lipitor] 40 mg PO DAILY
09/20/24 09:34
Carotid US [US Cerebrovascular] Routine
Comment:
Reason For Exam: syncope
09/22/24 11:00
DC Protocol for Telemetry ONCE
Abnormal Lab Results
09/19/24 09/20/24
22:09 03:23
RBC 3.69 L 10^6/uL
(4.70-6.10)
Hgb 11.3 L g/dL
(13.0-18.0)
Hct 33.9 L %
(39.0-52.0)
Abs Immat Gran (auto) 0.1 H 10^3/uL
(0-0.05)
Absolute Neuts (auto) 6.9 H 10^3/uL
(1.4-6.5)
Absolute Monos (auto) 0.8 H 10^3/uL
(0.1-0.6)
Immature Gran % 0.8 H %
(0-0.5)
BUN 39 H mg/dl 43 H mg/dl
(9-20) (9-20)
Creatinine 4.9 H* mg/dL 5.7 H* mg/dL
(0.7-1.3) (0.7-1.3)
09/19/24 22:09
09/20/24 03:23
Vital Signs
Initial and Last Documented VS:
Initial Vital Signs
Temp Pulse Resp BP Pulse Ox
97.6 F 86 16 99/57 99
09/19/24 21:36 09/19/24 21:36 09/19/24 21:36 09/19/24 21:36 09/19/24 21:36
Last Documented Vital Signs
Temp Pulse Resp BP Pulse Ox
98.4 F 83 10 124/85 98
09/20/24 11:52 09/20/24 10:33 09/20/24 09:00 09/20/24 13:11 09/20/24 08:28
MDM/Problems Addressed
MDM/Problems Addressed:
Patient with persistent labile blood pressure during observation, despite having a meal along with normal saline bolus. When reexamined and reassessed, patient with positive orthostatic vital signs, with blood pressure in 70s. As such, patient
will be admitted for further evaluation and treatment, including further IV hydration.
*Critical Care Note
Total Time (30-74mins, 75-104mins- exclusive of procedures): Not Applicable
ED Attending Note
-
Portions of this chart may have been created with voice recognition software.� Occasional wrong word or��sound alike� substitutions may have occurred due to the inherent limitations of voice recognition software.
Discharge Plan
Departure
Patient Disposition: Admit
Date of Disposition: 09/20/24
Time of Disposition: 01:54
Admit to: Telemetry
Presentation/result/management discussed w/ accepting MD/DO: Hospitalist
Discharge Problem:
Syncope, Hypotension
Interventions
Interventions:
*Risk Screen - Suicide Last Done: 09/19/24 21:57
*General Assessment Last Done: 09/19/24 21:36
*Neglect/Abuse Screening Last Done: 09/19/24 21:36
*ED- Fall Risk Assessment Last Done: 09/19/24 21:59
*ED COVID-19 Vaccine History Last Done: 09/20/24 03:31
*Nursing Disposition Last Done: 09/20/24 08:28
ED- Cardiac Assessment Last Done: 09/19/24 21:57
ED- Neurological Assessment Last Done: 09/19/24 21:57
Discharge Date and Time
Discharge Date/Time: 09/20/24 15:58
--- NOTE | 2024-09-20 02:27 | HPS.HSE ---
Family Physician
-
Family Physician: NOT KNOW UNKNOWN - PT DOES
Chief Complaint
-
Witnessed syncopal episode
History of Present Illness
Patient is a 29-year-old with end-stage renal disease on hemodialysis Thursday, hypertension, history of NSTEMI, history of CVA, history of recurrent syncopal since initiating dialysis 1 year ago presents to the emergency department
after a syncopal episode at home found to be hypotensive by EMS.
Patient currently gets dialysis via a right femoral dialysis catheter due to thrombosis of his upper extremity access and is currently on anticoagulation. He reported that he went to dialysis and his initial blood pressure was 200 prior to going on
a machine. At the end of dialysis he does not know what his blood pressure was but he had a 2.5 L fluid removal. He did not take his usual antihypertensives on the dialysis day. He has not taken them today. After dialysis the patient felt his
blood pressure was low and he felt nauseous. After arrival at home he did apparently felt nauseous and when he got up he collapsed. He is unclear for how long. He apparently had 2 such episodes and EMS was called. When EMS arrived they measured
the blood pressure of 60/40. Patient denying eating his head. He denied having any palpitations or chest pain. He denied any medications. Patient denies any recent melena or hematochezia.
Patient stated that has had multiple episodes of syncope since initiating dialysis. He gets them both on dialysis and nondialysis days. Reports that his blood pressure usually drops significantly after dialysis and he develops severe nausea.
Here in the emergency department initial blood pressure was 70 systolic, current blood pressure was 89/62 with a pulse of 80. Temperature was nine 7.6. ECG showed a normal sinus rhythm at a rate of 86. Orthostatic vital signs in the emergency
department shows 92 supine and 81 standing. CBC was unremarkable. His electrolytes are stable BUN and creatinine are consistent with dialysis patient. Blood glucose was 80.
He is currently alert and oriented x 3 and denies any headache or neck pain.
Medical History
Past Medical History
Past Medical History: Reports HTN and Renal Failure (ESRD on hemodialysis Thursday via a right groin PermCath)
Past Surgical History: Reports Other
Social History
Tobacco: Non-smoker
Alcohol: Occasional
Drug: Marijuana
Personal: Single
Family History
Family History: Not pertinent
Allergies / Home Medications
Allergies reflects when Allergies were last updated in [facility].
Home Medications with original date entered in [facility]
Allergy/Medication List:
Allergies
Allergy/AdvReac Type Severity Reaction Status Date / Time
No Known Allergies Allergy Verified 09/19/24 21:33
Home Medications
apixaban 2.5 mg tablet (Eliquis) 2.5 mg PO BID Blood Clot Prevention/Tx 09/01/24
atorvastatin 40 mg tablet 40 mg PO DAILY High Cholesterol 09/01/24
lisinopril 40 mg tablet 40 mg PO DAILY Blood Pressure 09/01/24
nifedipine 30 mg tablet,extended release 30 mg PO DAILY Blood Pressure 09/01/24
torsemide 100 mg tablet 100 mg PO QPM Fluid Retention/Swelling 09/01/24
Review of Systems
-
History Source: Patient
Constitutional: Reports No Symptoms
EENT: Reports No Symptoms
Respiratory: Reports No Symptoms
Cardiac: Reports No Symptoms
Abdomen/GI: Reports No Symptoms
: Reports No Symptoms
Musculoskeletal: Reports No Symptoms
Skin: Reports No Symptoms
Neurological: Reports No Symptoms
Endocrine: Reports No Symptoms
Hematologic/Lymphatic: Reports No Symptoms
Psych: Reports No Symptoms
Physical Exam
Vital Signs
Vital Signs
Temp Pulse Resp BP Pulse Ox
97.6 F 80 15 89/62 99
09/19/24 21:36 09/20/24 02:00 09/20/24 01:30 09/20/24 02:00 09/20/24 02:00
Physical Exam
General: Well Developed, Comfortable and Conversant
HEENT: NormoCephalic, Anicteric, Moist mucous membranes, Atraumatic and PERRLA
Respiratory: Clear
Cardiac: S1/S2 and Regular Rhythm
Breast: Deferred by me
GI: Soft, Non Tender, Non Distended and Normal Bowel Sounds
Rectal: Deferred by Provider
Musculoskeletal: No Clubbing, No Cyanosis and No Edema
Skin: Warm
Neuro: AO x 3 and Nonfocal/grossly intact
Hematologic/Lymphatic: No Lymphadenopathy
Psych: Calm
Laboratory Results
-
09/19/24 22:09
09/19/24 22:09
Laboratory Results
Total Bilirubin 0.5 mg/dl (0.2-1.3) 09/19/24 22:09
AST 24 U/L (17-59) 09/19/24 22:09
ALT 24 U/L (0-50) 09/19/24 22:09
Alkaline Phosphatase 97 U/L (38-126) 09/19/24 22:09
Troponin I 0.016 ng/ml 09/19/24 22:09
Data Reviewed
-
Medical Tests (Nuc Med, Echo, EKG etc): Image Personally Visualized and interpreted
Lab Data: Labs Reviewed by me
Old Records: Reviewed
Impression/Plan
-
IMPRESSION:
29 y.o with persisent hypotension following a syncopal episode after HD today. HD at 1 pm. S/P dialysis very nauseous then had a witnessed syncopal episode. Hypotensive to 60 systolic per EMS. Placed in [place] and came around. Lenght of
LOC unknown. In ED arrived with BP of 70 systolic. Given 250 ml NS. Then rechalanged with another 250 ml. Improved BP to 90 systolic but was orthostatic on standing with BP of 80 systolic. There was no head strike per patient. ECG is normal.
Normal troponin. Normal labs. Suspect hypovolemia versus vasovagal syncope. Seems to have labile BPs with elevated pre-dialysis BP.
PLAN:
Syncope - Suspect secondary to hypovolemia. 2.5 L UF today. ECG, labs, telemetry ok. No signs of active infection. Did not go home as he remained with soft bp
- admit to telemetry
- trend troponin, echo
- holding lisinopril, torsemide and nifedipine for now
- check orthostatics in am
- renal diet
- continued apixaban for his graft thrombosis
- nephrology consult for HD
code status - full code
[2024-09-20 03:59] LABS: Blood Urea Nitrogen 43 mg/dl (9-20); Calcium 9.4 mg/dl (8.4-10.2); Carbon Dioxide 27 mmol/L (22-30); Chloride 100 mmol/L (98-107); Glucose 95 mg/dl (70-99); Sodium 139 mmol/L (135-145); eGFR 12.86
[2024-09-20 04:09] LABS: Troponin I 0.025 ng/ml
[2024-09-20] MEDS: ELIQUIS 2.5 MG PO (09:36)
--- NOTE | 2024-09-20 09:36 | W.PN.HOSP.TC ---
Today's Communication/Plan
-
Hold antihypertensives
Echocardiogram
Carotid ultrasound
Monitor hemodynamics per
Nephrology consultation
Next HD on 09/21
Assessment / Plan
Assessment / Plan
Impression:
29 y.o with persisent hypotension following a syncopal episode after HD today. HD at 1 pm. S/P dialysis very nauseous then had a witnessed syncopal episode. Hypotensive to 60 systolic per EMS. Placed in [facility] and came around. Lenght of
LOC unknown. In ED arrived with BP of 70 systolic. Given 250 ml NS. Then rechalanged with another 250 ml. Improved BP to 90 systolic but was orthostatic on standing with BP of 80 systolic. There was no head strike per patient. ECG is normal.
Normal troponin. Normal labs. Suspect hypovolemia versus vasovagal syncope. Seems to have labile BPs with elevated pre-dialysis BP.
Syncope with hypotension suspected secondary to hypovolemia
End-stage renal disease presumably secondary to hypertensive nephrosclerosis. On dialysis for about a year.
Multidrug resistant hypertension.
Coded upper extremity AV graft.
Temporary right femoral HD access in place.
Other conditions:
Essential hypertension
Hypertensive retinopathy
Anemia of CKD
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
Suspected hypercoagulable state on Eliquis.
Dyslipidemia.
Medical noncompliance.
History of polysubstance abuse methamphetamines
Tobacco use disorder
Plan:
Recurrent syncope and hypotension suspected secondary to hypovolemia.
Patient reports 2.5 L removed on recent HD
ECG and normal sinus rhythm
Check orthostatics.
Update echocardiogram
Carotid ultrasound.
Holding lisinopril and significant pain
Holding torsemide (patient close to be anuric)
Nephrology evaluation
Presumed hypercoagulable state with multiple clotting events. Also prior history of CVA possibly embolic in review of imaging.
Currently on Eliquis.
Update coags.
Will need outpatient hematology workup
Anticipated Discharge: 24 - 48 hours
Subjective/Interval History
-
Date of Service: September 20, 2024
Objective Data
-
Labs:
Laboratory Results
09/19/24 09/20/24
22:09 03:23
WBC 10.4
Hgb 11.3 L
Hct 33.9 L
Plt Count 300
Sodium 139 139
Potassium 4.1 5.0
Chloride 100 100
Carbon Dioxide 22 27
BUN 39 H 43 H
Creatinine 4.9 H* 5.7 H*
Glucose 79 95
Calcium 9.5 9.4
Total Bilirubin 0.5
AST 24
ALT 24
Alkaline Phosphatase 97
Vital Signs:
Vital Signs
Temp Pulse Resp BP Pulse Ox
97.6 F 85 16 106/61 98
09/19/24 21:36 09/20/24 08:28 09/20/24 08:28 09/20/24 08:28 09/20/24 08:28
I&O
09/19/24 09/20/24 09/21/24
06:59 06:59 06:59
Intake Total 500 / 500 240 / 240
Balance 500 / 500 240 / 240
Physical Exam
-
General: Well Developed and No Apparent Distress
HEENT: Normocephalic, Atraumatic and Moist Mucous Membranes
Respiratory: Clear to Auscultation
Cardiac: Regular Rhythm and S1/S2; Negative Murmur, Rub or Gallop
GI: Soft, Nontender, Nondistended and Normal Bowel Sounds; Negative Organomegaly
Rectal: Deferred by Provider
Musculoskeletal: No Clubbing, No Cyanosis and No Edema
Skin: Negative Rash
Neuro: Nonfocal/Grossly Intact
[2024-09-20] MEDS: LIPITOR 40 MG PO (09:37)
--- NOTE | 2024-09-20 12:25 | W.CON.NEPH ---
Consultation
-
Date/Time Consultation Requested: September 20, 2024 at 5 AM
Date/Time Consultation Performed: September 20, 2024 at 12 PM
Requesting Provider: Dr. Valdivia
Performing Provider: Dr. Robertson
Reason for Consultation: End-stage renal disease
Medical History
-
Chief Complaint: ESRD
History of Present Illness:
28-year-old male with past medical history end-stage renal disease on HD (for about a year), longstanding uncontrolled hypertension, polysubstance abuse, CVA in 2022. Patient presents to the ER today with syncope and hypotension. Previous
admission with clotted AV graft. Patient gets dialysis Thursday, Thursday, Thursday. Had a [facility] dialysis unit near [facility]. He is to start dialysis tomorrow and perennial?
He has a femoral permacath
Renal consult for end-stage renal disease
Past Medical History
past medical history end-stage renal disease on HD (for about a year), longstanding uncontrolled hypertension, polysubstance abuse, CVA in 2022.
Social History
Tobacco: Non-Smoker
Alcohol: None
Family History
No renal disease
Allergies / Home Medications
Allergy/AdvReac Type Severity Reaction Status Date / Time
No Known Allergies Allergy Verified 09/19/24 21:33
�Medication �Instructions �Recorded �Confirmed �Type
apixaban 2.5 mg tablet (Eliquis) 2.5 mg PO BID Blood Clot 09/01/24 09/20/24 History
Prevention/Tx
atorvastatin 40 mg tablet 40 mg PO DAILY High Cholesterol 09/01/24 09/20/24 History
lisinopril 40 mg tablet 40 mg PO DAILY Blood Pressure 09/01/24 09/20/24 History
nifedipine 30 mg tablet,extended 30 mg PO DAILY Blood Pressure 09/01/24 09/20/24 History
release
torsemide 100 mg tablet 100 mg PO QPM Fluid 09/01/24 09/20/24 History
Retention/Swelling
Review of Systems
-
No chest pain or shortness of breath
All other systems: Negative unless noted
Physical Exam
Vital Signs
Vital Signs
Temp Pulse Resp BP Pulse Ox
98.4 F 77 10 107/67 98
09/20/24 11:52 09/20/24 10:00 09/20/24 09:00 09/20/24 09:38 09/20/24 08:28
Lab Results
WBC 10.4 10^3/uL (4.8-10.8) 09/19/24 22:09
RBC 3.69 10^6/uL (4.70-6.10) L 09/19/24 22:09
Hgb 11.3 g/dL (13.0-18.0) L 09/19/24 22:09
Hct 33.9 % (39.0-52.0) L 09/19/24 22:09
Plt Count 300 10^3/uL (130-400) 09/19/24 22:09
Sodium 139 mmol/L (135-145) 09/20/24 03:23
Potassium 5.0 mmol/L (3.5-5.1) 09/20/24 03:23
Chloride 100 mmol/L (98-107) 09/20/24 03:23
Carbon Dioxide 27 mmol/L (22-30) 09/20/24 03:23
BUN 43 mg/dl (9-20) H 09/20/24 03:23
Creatinine 5.7 mg/dL (0.7-1.3) H* 09/20/24 03:23
eGFR 12.86 09/20/24 03:23
Glucose 95 mg/dl (70-99) 09/20/24 03:23
Calcium 9.4 mg/dl (8.4-10.2) 09/20/24 03:23
Albumin 4.7 g/dl (3.5-5.0) 09/19/24 22:09
Physical Exam
General no acute distress
HEENT no cephalic atraumatic extraocular muscle intact no scleral icterus no JVD neck supple
lungs clear to auscultation bilateral
heart regular S1-S2 positive
abdomen soft nontender positive bowel sounds
extremities no edema pulses present bilateral
Neurologically nonfocal alert and oriented x 3
Skin no lesions no abrasions no petechiae
Psych normal affect no bizarre behavior
Data Reviewed
-
Labs: Labs Reviewed by me and Discussed with Patient
Assessment/Plan
-
28-year-old male with past medical history end-stage renal disease on HD (for about a year), longstanding uncontrolled hypertension, polysubstance abuse, CVA in 2022. Patient presents to the ER today with clotted AV graft. Patient gets dialysis
Thursday, Thursday, Thursday. Had a [facility] dialysis unit near [facility].
Presents with syncope
Impression.
Hypotension syncope
ESRD. Thursday
Clotted right AV brachiocephalic shunt status post angioplasty last admission
Remains with femoral catheter
Hypertension.
History of polysubstance abuse.
Plan.
Estimated dry weight 62 kg per patient
No acute need for dialysis today
See orders for tomorrow
== END 2024-09-20 14:25 | disposition left against medical advice (07) | DRG 640 ==
LOC: ED 09:35
PROVIDERS: Emergency Medicine; ADMITTING PHYSICIAN Internal Medicine; ATTENDING PHYSICIAN Internal Medicine; CONSULT PHYSICIAN Internal Medicine Nephrology; EMERGENCY PHYSICIAN Emergency Medicine
DX: E86.1 Hypovolemia (principal); N18.6 End stage renal disease; I12.0 Hypertensive chronic kidney disease with stage 5 chronic kidney disease or end stage renal disease; D68.59 Other primary thrombophilia; I95.3 Hypotension of hemodialysis; F19.10 Other psychoactive substance abuse, uncomplicated; I1A.0 Resistant hypertension; D63.1 Anemia in chronic kidney disease; E78.5 Hyperlipidemia, unspecified; R55 Syncope and collapse; F17.200 Nicotine dependence, unspecified, uncomplicated; Z53.29 Procedure and treatment not carried out because of patient's decision for other reasons; Z99.2 Dependence on renal dialysis; I25.2 Old myocardial infarction; Z86.73 Personal history of transient ischemic attack (TIA), and cerebral infarction without residual deficits; Z79.01 Long term (current) use of anticoagulants
CPT/HCPCS: 80048; 80053; 82962; 84484; 85025; 93005; 93306; 93880; 96360; 96361; 99285

== ENCOUNTER 2024-12-20 21:48 | Inpatient (IN) | payer OTHER, SELFPAY ==
[2024-12-20] VITALS (15 sets, daily range): BP systolic 89–211; BP diastolic 41–155
--- NOTE | 2024-12-20 16:47 | ED.GENMED ---
History of Present Illness
General
Chief Complaint: Catheter/Tube Problem
Time Seen by Provider: 12/20/24 16:47
History of Present Illness
History of Present Illness:
TIME OF INITIAL EVALUATION
- 4:50 PM
REVIEW OF OLD RECORDS
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 When the patient was admitted here in September 2024, he left AMA. The patient did have a fluoroscopically guided exchange of right common femoral tunneled HD
catheter in August [address] Chowdhury.
Note:
CHIEF COMPLAINT(S)
- Concerns for a potential bloodstream infection.
HISTORY OF PRESENT ILLNESS
The patient is a 29-year-old male with a history of multiple dialysis catheters, currently with a catheter in the groin, presenting with concerns of a blood infection. The patient reports a history of similar infections and has experienced recent
symptoms suggesting a possible infection. The patient indicates he was burning up with fever yesterday but did not measure his temperature. A temperature reading in the emergency room was noted at 99.7�F. The patient also complains of left-sided
pain following dialysis, which occurred on Thursday, making it painful to touch the area. He denies any coughing or sputum production related to pneumonia symptoms. Additionally, there is a discharge from the catheter site, which was reported to
need cleaning.
The patient has been hospitalized in the past, with noted records of leaving against medical advice in September due to concerns about bleeding and clotting. He does not have any other catheters at present and is awaiting a future appointment for
arteriovenous fistula mapping scheduled for April 24.
PHYSICAL EXAM
General: Alert, but at times seems somewhat lethargic
Skin: Slightly warm to touch
Head: Normocephalic, atraumatic.
Neck: Supple, trachea midline, no meningeal signs
Eye Ears, nose, mouth and throat: Somewhat dry oral mucosa moist.
Cardiovascular: Normal peripheral perfusion, No edema.
Respiratory: Respirations are non-labored.
Gastrointestinal: Abdomen nondistended, noted presence of a small fat-containing hernia near the umbilicus, which is not currently concerning.
Back: Normal range of motion, Normal alignment.
Musculoskeletal: Normal range of motion, normal strength.
Neurological: Alert and oriented to person, place, time, and situation, No focal neurological deficit observed.
Psychiatric: Cooperative, appropriate mood & affect.
PROBLEM LIST
Acute:
- Possible bloodstream infection
Chronic:
- Chronic kidney disease on dialysis
PLAN
- Obtain blood cultures to evaluate for potential infection.
- Order blood work and a chest X-ray.
- Ensure catheter site is cleaned and monitored for discharge.
- Consider future surgical consultation regarding arteriovenous fistula.
DIFFERENTIAL DIAGNOSIS
The Differential Diagnosis includes, in no particular order and is not limited to:
1. Bloodstream infection
2. Catheter-related infection
3. Pyelonephritis
4. Acute pain due to dialysis or catheter placement
5. Peritonitis
6. Pneumonia
7. Urinary tract infection
8. Musculoskeletal pain following dialysis
9. Hernia complications
10. Hyperthermia secondary to infection
Disposition:
SUMMARY OF ENCOUNTER
The patient, a 29-year-old male with a history of chronic kidney disease on dialysis, presented to the emergency department with symptoms suggestive of a potential bloodstream infection. The patient reported recent fever and pain post-dialysis.
Physical examination did not reveal acute distress, but there was concern for sepsis given the patients presentation and history of similar infections. In response to these concerns, broad-spectrum antibiotics, including vancomycin and cefepime,
were initiated. The patient has a dialysis catheter, which raises the suspicion of a catheter-related infection. Efforts to obtain a urine sample were unsuccessful, but the patient was willing to try again.
DISPOSITION
Planning on admitting to the hospital.
ASSESSMENT
The patients presentation is highly suggestive of a sepsis or catheter-related bloodstream infection requiring immediate medical intervention.
EMERGENCY TREATMENTS ADMINISTERED
Broad-spectrum antibiotics: vancomycin and cefepime.
PLAN
- Admit to the hospital for further management of possible sepsis.
- Ultrasound-guided IV access to be considered for managing treatment administration.
MEDICAL DECISION MAKING
- Number and Complexity of Problems Addressed: Chronic conditions affecting care with chronic kidney disease on dialysis, and high suspicion of bloodstream infection. Differential diagnosis includes bloodstream infection, catheter-related infection,
pyelonephritis, and acute pain due to dialysis.
- Data:
Category 1: The initiation of broad-spectrum antibiotic treatment was necessary given the patients history and clinical presentation.
Category 3: Antibiotic therapy discussed in response to possible bloodstream infection and kidney-related complications due to dialysis catheter.
-Risk:
Antibiotic management initiated due to concern for sepsis, with plans for hospital admission suggesting heightened risk and complexity.
DIAGNOSIS
- Possible Sepsis (ICD-10: A41.9)
- Catheter-Related Infection (ICD-10: T82.7XXA)
- Chronic Kidney Disease, Stage 5 on Dialysis (ICD-10: N18.6)
RADIOLOGY
- Chest x-ray shows no acute abnormality; area of encephalomalacia/cystic appearance in the left frontal on CT imaging which appears new from prior
EKG
- Sinus, prolonged QTc, nonspecific ST abnormality
LABS
- White count 20.8, bicarb 14, creatinine 6.0, lactic 1.5
UPDATE
- While getting CXR, had sz like activity - gave ativan.
- Will hold off on any further antihypertensives. He was given some IV fluids after blood pressure did drop. I also discussed CT findings with Dr. May, radiologist. I am more concerned for the possibility of bacteremia given the markedly
elevated white blood cell count and initial tachycardia in the setting of having dialysis access.
Past History
Past History
ED Past Medical History: None
ED Past Surgical History: None
Social History
Tobacco: Smoker
Alcohol: None
Phy Exam
Physical Exam
Physical Exam:
See HPI
Course
Orders/Labs/Results
Orders:
Orders
12/20/24 17:01
Urinalysis Reflex To Culture Urgent
0.9% Sodium Chloride 250 ml [Nss] 250 ml IV BOLUS
Acetaminophen [Tylenol] 1,000 mg PO NOW STA
12/20/24 17:02
Lisinopril [Zestril] 40 mg PO NOW STA
NIFEdipine EXTENDED RELEASE [Procardia Xl (Extended Release)] 30 mg PO NOW STA
12/20/24 17:13
Complete Blood Count/With Diff Urgent
Comprehensive Metabolic Panel Urgent
Lactic Acid Q4H
Comment: CANCEL 2nd LACTIC ACID IF 1st LACTIC ACID IS LESS THAN 2
Blood Culture Q30M
DEAN Source: Blood/Venous
Specimen Description:
12/20/24 17:45
Blood Culture Q30M
DEAN Source: Blood/Venous
Specimen Description:
12/20/24 18:17
CT Head W/o Iv Contrast Urgent
Comment:
Reason For Exam: ?first time seizure
CR Chest Portable - 1 View Urgent
Comment:
Reason For Exam: fever?
Reason Study Needs to be Portable: Unable to Transport
12/20/24 18:18
Lorazepam [Ativan] 1 mg IV NOW STA
Ondansetron Injectable [Zofran] 4 mg IV NOW STA
12/20/24 18:42
Cefepime HCl [Maxipime] 1,000 mg IV NOW STA
Vancomycin [Vancocin] 1,500 mg 0.9% Sodium Chloride 500 ml [Nss] 500 ml IV NOW
12/20/24 19:04
Sterile Water [Sterile Water For Injection] 10 ml .ROUTE .STK-MED ONE
12/20/24 19:47
0.9% Sodium Chloride 250 ml [Nss] 250 ml IV BOLUS
12/20/24 20:22
Electrocardiogram (*1) Urgent
Reason for Study: Other
Other Reason for Exam: sepsis
EKG- Treatment ONCE
12/20/24 20:56
Blood Culture Urgent
DEAN Source: Blood/Venous
Specimen Description:
Comment: iv team to draw from right groin cath
12/20/24 21:06
NEPHROLOGY CONSULT Routine
Consulting Provider: Dominic San V.
Was physician already notified: Yes
Reason for consult: esrd missed dialysis 1 week , met acidosis
NEUROLOGY CONSULT Routine
Consulting Provider: Jamey Verdugo
Was physician already notified: Yes
Reason for consult: new area yctic lesion h/a poss seizure
12/20/24 21:20
Heparin 2,600 units IV HD-ONCE ONE
12/20/24 21:22
Admit/Transfer Patient As Directed
Co-Sign Provider:
Level of Care: Inpatient admission
Assign to:: IMU- Intermediate Care
Physician / Group: ricki cabezas
Diagnosis: septic shock po bacteremia dialysis cath,esrd missd dialysis, new brain les
Reason for Hospitalization: septic shock po bacteremia dialysis cath,esrd missd dialysis, new brain les
Expected length of stay greater than two midnights?: Yes
ELOS- Estimated Length of Stay in days: 5
I certify the patient meets the requirements for IP care: Yes
Code Status As Directed
Resuscitation Status: Full Code
Prochlorperazine [Compazine] 5 mg IV Q6HPRN PRN
12/20/24 21:25
PRN Pain Medication Management As Directed
May give lesser potent ordered pain med per pt: Yes
preference::
Protocol:: Medication orders for pain may be administered in a
manner that supports deferring to patient preference
when the pt is:
- Requesting an ordered lesser potent pain medication.
Least to most potent pain medications are defined
as: acetaminophen < NSAID < tramadol < opioids
(morphine, oxycodone, hydromorphone).
- Requesting a lesser dose of the same medication IF
ORDERED.
- Requesting a less intrusive route of administration
if both routes are prescribed by the provider (PO <
IV).
12/20/24 21:30
Sterile Water For Inj [Sterile Water For Injection 1000 ml] 1,000 ml Sodium Bicarbonate 150 meq IV 80 mls/hr
Abnormal Lab Results
12/20/24
17:13
WBC 20.8 H 10^3/uL
(4.8-10.8)
RBC 3.84 L 10^6/uL
(4.70-6.10)
Hgb 11.2 L g/dL
(13.0-18.0)
Hct 33.2 L %
(39.0-52.0)
Abs Immat Gran (auto) 0.1 H 10^3/uL
(0-0.05)
Absolute Neuts (auto) 19.1 H 10^3/uL
(1.4-6.5)
Absolute Lymphs (auto) 0.6 L 10^3/uL
(1.2-3.4)
Absolute Monos (auto) 1.0 H 10^3/uL
(0.1-0.6)
Neutrophils % 92.0 H %
(42.2-75.2)
Lymphocytes % 2.8 L %
(20.5-51.1)
Sodium 130 L mmol/L
(135-145)
Carbon Dioxide 14 L* mmol/L
(22-30)
BUN 52 H mg/dl
(9-20)
Creatinine 6.0 H* mg/dL
(0.7-1.3)
Glucose 117 H mg/dl
(70-99)
Alkaline Phosphatase 162 H U/L
(38-126)
12/20/24 17:13
12/20/24 17:13
Vital Signs
Initial and Last Documented VS:
Initial Vital Signs
Temp Pulse Resp BP Pulse Ox
36.7 C 127 16 211/155 99
12/20/24 16:05 12/20/24 16:05 12/20/24 16:05 12/20/24 16:05 12/20/24 16:05
Last Documented Vital Signs
Temp Pulse Resp BP Pulse Ox
37.6 C 97 27 100/41 96
12/20/24 17:33 12/20/24 19:30 12/20/24 18:22 12/20/24 19:00 12/20/24 19:30
*Pulse Oximetry
SaO2: 99
Oxygen Mode of Delivery: Room air
Patient hypoxic: no
*Critical Care Note
Total Time (30-74mins, 75-104mins- exclusive of procedures): Not Applicable
ED Attending Note
-
Portions of this chart may have been created with voice recognition software.� Occasional wrong word or��sound alike� substitutions may have occurred due to the inherent limitations of voice recognition software.
Discharge Plan
Departure
Patient Disposition: Admit
Date of Disposition: 12/20/24
Time of Disposition: 20:32
Presentation/result/management discussed w/ accepting MD/DO: Hospitalist
Discharge Problem:
Sepsis
Prescriptions:
No Action
atorvastatin 40 mg Tablet
40 mg PO DAILY
propranolol 80 mg Tablet
80 mg PO BID
torsemide 100 mg Tablet
100 mg PO SUTUTHSA
Patient Comments:
12/20/2024, takes on non-dialysis days.
calcium acetate(phosphat bind) 667 mg Capsule
667 mg PO TIDWMEAL
Referrals:
UNKNOWN - PT DOES,NOT KNOW [Family Provider]
Interventions
Interventions:
*Risk Screen - Suicide Last Done: 12/20/24 16:05
*General Assessment Last Done: 12/20/24 16:55
*Neglect/Abuse Screening Last Done: 12/20/24 16:05
*ED- Fall Risk Assessment Last Done: 12/20/24 16:55
*ED COVID-19 Vaccine History Last Done: 12/20/24 16:55
EQ-Lerrzp-Hlkfsqoebj Assessment Last Done: 12/20/24 16:55
ED-Male Genitourinary Assessment Last Done: 12/20/24 16:57
Discharge Date and Time
Print Language: CHINESE
[2024-12-20 17:22] LABS: Hematocrit 33.2 % (39.0-52.0); Hemoglobin 11.2 g/dL (13.0-18.0); Mean Corp Hgb Conc. 33.7 g/dL (33.0-37.0); Mean Corpuscular Volume 86.5 fL (80.0-94.0); Nucleated Red Blood Cells % 0 % (-); Platelet Count 272 10^3/uL (130-400); Red Cell Dist. Width 13.1 % (11.5-14.5)
[2024-12-20] MEDS: NSS 250 IV ×2 (17:24→20:26)
[2024-12-20] MEDS: TYLENOL 1000 MG PO (17:24)
[2024-12-20] MEDS: ZESTRIL 40 MG PO (17:24)
[2024-12-20] MEDS: PROCARDIA XL (EXTENDED RELEASE) 30 MG PO (17:24)
[2024-12-20 17:39] LABS: ALT (SGPT) 35 U/L (0-50); AST (SGOT) 29 U/L (17-59); Albumin 4.5 g/dl (3.5-5.0); Alkaline Phosphatase 162 U/L (38-126); Blood Urea Nitrogen 52 mg/dl (9-20); Calcium 9.7 mg/dl (8.4-10.2); Carbon Dioxide 14 mmol/L (22-30); Chloride 101 mmol/L (98-107); Glucose 117 mg/dl (70-99); Potassium 4.4 mmol/L (3.5-5.1); Sodium 130 mmol/L (135-145); Total Protein 7.6 g/dl (6.3-8.2); eGFR 12.09
[2024-12-20] MEDS: ATIVAN 1 MG IV (18:20)
[2024-12-20] MEDS: ZOFRAN 4 MG IV (18:20)
[2024-12-20] MEDS: MAXIPIME 1000 MG IV (19:06)
[2024-12-20] MEDS: VANCOCIN 530 MG IV (20:28)
--- NOTE | 2024-12-20 21:10 | HPS.HSE ---
Family Physician
-
Family Physician: NOT KNOW UNKNOWN - PT DOES
Chief Complaint
-
Headache, missed dialysis x 1 week, left rib cage pain
History of Present Illness
29-year-old male who states he has had right groin pain for a week that felt swollen at the site of his dialysis catheter. He also reports he has had left rib cage pain earlier in the week due to the excruciating pain he states he misses dialysis
Thursday for our sessions. He is also complaining of a left frontal parietal headache 7 out of 10 with some nausea. He said history of bacteremia from chest wall dialysis catheter bacteremia resulting in septic emboli to brain
patient has a right upper arm AV fistula placed several months ago however he states he was seen here In September for right upper extremity access thrombosis. Patient denies blurred vision, sore throat, fever, chills, chest pain, palpitations, cough,
shortness of breath, abdominal pain, vomiting, diarrhea, urinary symptoms. He does still make urine. He has history of hypotension post dialysis was seen in September after receiving dialysis session blood pressure dropped to 70 systolic he required
2.5 L of fluid and signed out AMA. Patient has past medical history of ESRD due to uncontrolled hypertension starting in 03/27/2023, dialysis catheter bacteremia March 2023 causing multiple septic emboli to brain, right upper arm AV fistula
occlusion with repair by IR, labile blood pressure postdialysis, nicotine abuse, marijuana use
Medical History
Past Medical History
Past Medical History: Reports Other
Additional Past Medical History:
ESRD due to uncontrolled hypertension starting in 03/27/2023atient does make urine
dialysis catheter bacteremia March 2023 causing multiple septic emboli to brain
right upper arm AV fistula occlusion with repair by IR
labile blood pressure postdialysis
nicotine abuse
marijuana use
Past Surgical History: Reports Other
Additional Past Surgical History:
Chest wall catheter dialysis
Right groin dialysis catheter
Right AV fistula
Social History
Tobacco: Smoker (1 pack a day)
Alcohol: Occasional
Drug: None
Personal: Single
Living: With Family
Employment: Not Employed
Family History
Family History: Other (Father history DM 2 mother history kidney stones)
Allergies / Home Medications
Allergies reflects when Allergies were last updated in [employer].
Home Medications with original date entered in [employer]
Allergy/Medication List:
Allergies
Allergy/AdvReac Type Severity Reaction Status Date / Time
No Known Allergies Allergy Verified 09/19/24 21:33
Home Medications
atorvastatin 40 mg tablet 40 mg PO DAILY 12/20/24
calcium acetate(phosphat bind) 667 mg capsule 667 mg PO TIDWMEAL 12/20/24
propranolol 80 mg tablet 80 mg PO BID 12/20/24
torsemide 100 mg tablet 100 mg PO SUTUTHSA 12/20/24
Review of Systems
-
History Source: Patient
A 12 point ROS was completed and negative except as noted: Yes
Constitutional: Reports Fatigue; Denies Fever
EENT: Denies Sore Throat or Runny Nose
Respiratory: Denies Cough or Trouble Breathing
Cardiac: Denies Chest Pain, Diaphoresis, Palpitations or Syncope
Abdomen/GI: Reports Nausea; Denies Abdominal Pain, Vomiting, Diarrhea or Constipated
: Denies Dysuria, Frequency, Flank Pain or Incontinence
Musculoskeletal: Denies Joint Pain or Edema
Skin: Denies Itching or Rash
Neurological: Reports Headache (Left frontal parietal); Denies Dizzy, Weakness or Numbness
Endocrine: Reports No Symptoms
Hematologic/Lymphatic: Reports No Symptoms
Psych: Reports Calm
Physical Exam
Vital Signs
Vital Signs
Temp Pulse Resp BP Pulse Ox
99.7 F 97 27 100/41 96
12/20/24 17:33 12/20/24 19:30 12/20/24 18:22 12/20/24 19:00 12/20/24 19:30
Physical Exam
General: Comfortable, Conversant and Other (Lethargic but oriented x 3); No Fever, Chills or Slurred Speech
HEENT: NormoCephalic, Anicteric, Atraumatic, PERRLA, [place] Conjunctivae and No Ptosis
Respiratory: Clear; No Wheezes or Rales
Cardiac: S1/S2 and Regular Rhythm; No Murmur, Rub or Gallop
Breast: Deferred by me
GI: Soft, Non Tender, Non Distended, Normal Bowel Sounds and No Hepatosplenomegaly
Genito-urinary: Deferred by me
Musculoskeletal: No Clubbing, No Cyanosis, No Edema and Other (AV fistula right upper extremity, right groin dialysis catheter present tender on palpation no obvious swelling or erythema noticed)
Skin: Warm and Dry; No Rash or Jaundice
Neuro: No Motor Deficits, Nonfocal/grossly intact, Cranial Nerves Intact, No Sensory Deficits and Other (Drowsy but oriented x 3); No Slurred Speech, Facial Droop, Tremors or Sedated
Psych: Calm
Laboratory Results
-
12/20/24 17:13
12/20/24 17:13
Laboratory Results
Lactic Acid Cancelled 12/20/24 21:15
Total Bilirubin 0.8 mg/dl (0.2-1.3) 12/20/24 17:13
AST 29 U/L (17-59) 12/20/24 17:13
ALT 35 U/L (0-50) 12/20/24 17:13
Alkaline Phosphatase 162 U/L (38-126) H 12/20/24 17:13
Impression/Plan
-
Impression/plan:
Admit to IMU
#Septic shock possibly right groin dialysis catheter associated
#History of bacteremia dialysis catheter in past
- Blood cultures x 2, obtain single blood culture from dialysis catheter
- BP 211/55 > 89 systolic, WBC 20.8 with left shift, 99.7F, HR 97
-IV vancomycin, IV cefepime
-Follow CBC, CMP, blood cultures
-Consult ID
CXR: No acute cardiopulmonary abnormality dialysis, metabolic acidosis missed dialysis
#History of hypotension postdialysis
- BP 211/55 > 89 systolic,
2 L IV NSS given in ER
- Hold torsemide 100 mg Thursday, propranolol 80 mg twice daily
#ESRD on dialysis but missed x 1 week due to right groin pain does make urine
- Consult Nephro for dialysis in a.m.
- Creat 6, bun 52
#Metabolic acidosis setting of sepsis/ESRD missed dialysis
-Consult nephrology Case discussed with Dr. San bicarb drip 80 cc an hour
#New left frontal lobe hypodense focus likely cystic encephalomalacia/cystic lesion
- Discussed case with neurology no current recommendations except prochlorperazine for headache
#History Embolic strokes 03 31 2023�multiple small acute anterior circulation cortical read matter deep read matter periventricular white matter, mild white matter disease in the frontal and parietal lobes on MRI
#History of prior Adderall abuse orally
#Current nicotine abuse 1 pack a day
-Cessation advised
#Marijuana use
-Cessation advised
DVT prophylaxis
Subcu heparin
Full code
[2024-12-20] MEDS: HEPARIN 2600 UNITS IV (21:28)
--- NOTE | 2024-12-20 21:50 | VATNOTE ---
Requested to draw a set of blood cultures from a femoral dialysis catheter because of suspected infection. Order obtained to draw from Dialysis catheter and order obtained to flush after with Heparin 1000 units/ml to lumen volume. Red lumen of
dialysis used for blood culture. 10ml blood waste withdrawn and discarded. Blood culture obtained then flushed with 10mls NSS and 2600 units Heparin. Dialysis catheter then redressed as per policy
[2024-12-20] MEDS: SODIUM BICARBONATE 1150 MEQ IV (22:33)
[2024-12-21] VITALS (50 sets, daily range): BP systolic 95–144; BP diastolic 60–97; BMI 24.2
[2024-12-21 02:40] LABS: Urine Character Slightly Cloudy (Clear)
[2024-12-21] MEDS: OFIRMEV 100 IV (02:48)
[2024-12-21] MEDS: COMPAZINE 5 MG IV ×3 (02:49→23:12)
[2024-12-21 03:09] LABS: Urine Squamous Cell 0-2 /LPF (Few)
[2024-12-21 03:10] LABS: Urine Red Blood Cell None Seen /HPF (0-2)
--- NOTE | 2024-12-21 04:34 | PTCARENOTE ---
Received verbal report from YOLI Lainez. Pt arrived to floor via stretcher. Pt ox3, drowsy and easily arousable. NSR rhythm on the monitor. SpO2 95% on RA. Pt is pale and diaphoretic, oral temp of 102.8, JOSESITO Monroe notified and Rx received for
Ofirmev. Pt c/o nausea, Compazine administered (see MAR). sodium bicarb infusing @ 80 mL/hr. Hygiene completed including CHG wipes. Admission completed. Vital signs and assessment as documented. Pt now resting in bed with call patterson in reach.
[2024-12-21 05:11] LABS: Hematocrit 29.7 % (39.0-52.0); Hemoglobin 9.9 g/dL (13.0-18.0); Mean Corp Hgb Conc. 33.3 g/dL (33.0-37.0); Mean Corpuscular Volume 87.1 fL (80.0-94.0); Nucleated Red Blood Cells % 0 % (-); Platelet Count 236 10^3/uL (130-400); Red Cell Dist. Width 13.0 % (11.5-14.5)
[2024-12-21 05:34] LABS: ALT (SGPT) 38 U/L (0-50); AST (SGOT) 35 U/L (17-59); Albumin 4.0 g/dl (3.5-5.0); Alkaline Phosphatase 172 U/L (38-126); Blood Urea Nitrogen 60 mg/dl (9-20); Calcium 9.1 mg/dl (8.4-10.2); Carbon Dioxide 15 mmol/L (22-30); Chloride 100 mmol/L (98-107); Estimated Creatinine Clearance 12 ml/min; Glucose 111 mg/dl (70-99); Magnesium 2.1 mg/dl (1.6-2.3); Potassium 3.9 mmol/L (3.5-5.1); Sodium 131 mmol/L (135-145); Total Protein 6.6 g/dl (6.3-8.2); eGFR 9.88
--- NOTE | 2024-12-21 08:19 | CON.ID ---
Consultation
-
Date/Time Consultation Requested: December 20, [id number]
Date/Time Consultation Performed: December 21, 2024 0820
Requesting Provider: JOSESITO Chavez
Performing Provider: Dr. Susi Matias
Reason for Consultation: Bacteremia likely dialysis catheter right groin
Chief Complaint / Past History
Chief Complaint
Right groin pain
History of Present Illness
29-year-old male with history of uncontrolled hypertension resulting in end-stage renal disease on hemodialysis currently via right femoral dialysis catheter due to right upper extremity AV graft thrombosis who presented to the hospital on December 20
with approximately 1 week history of fever, chills, right femoral dialysis catheter discomfort, edema, left-sided rib pain and frontal headache. He reports missing dialysis for the last week due to pain. He states that the femoral catheter was
exchanged about a week ago due to poor flow. In ED temperature 102.8, white count 20.8. Initial blood pressure elevated 211/155 then decreased to 89 systolic. He is currently on vancomycin and cefepime. Admission blood culture positive for GPC
in clusters. Today headache improved. No cough or shortness of breath. No dysuria. No abdominal pain or diarrhea.
Past History
Additional Past Medical History:
HTN, uncontrolled
End-stage renal disease on hemodialysis via right groin dialysis catheter
Right upper extremity AV graft balloon angioplasty (09/02/24)
Hypertensive emergency/hypertensive retinopathy with vision loss (03/2023)
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
Hx Polysubstance abuse
Allergy History:
No Known Allergies Allergy (Verified 09/19/24 21:33)
Medications Reviewed: Yes
Current Antibiotics:
Vancomycin
Cefepime
Social History
Tobacco: Smoker (1ppd)
Alcohol: Occasional
Drug: Marijuana
Living: With Family
Employment: Not Employed
Family History
Family History: Not Pertinent
Review of Systems
Review of Systems
General: Fever, Chills and Change in Appetite
HEENT: Headache; Negative Sinus Problems or Pharyngitis
Cardiovascular: Chest Pain (Left side)
Respiratory: Negative Dyspnea or Cough
Gasteroenterology: Negative Nausea, Vomiting or Diarrhea
Genital / Urological: Negative Dysuria
Endocrine: Weakness
Skin / Hair / Nails: Negative Rash
All systems: All other systems were reviewed and were negative
Vital Signs
Temp Pulse Resp BP Pulse Ox
97.9 F 85 16 106/74 95
12/21/24 07:25 12/21/24 07:00 12/21/24 07:00 12/21/24 07:00 12/21/24 07:00
Selected Entries
12/21/24
01:43 12/21/24
03:55
Temp 102.8 F H 101.1 F H
Physical Exam
Physical Exam
Constitutional: Acutely Ill
Head: Other (No frontal or max or sinus tenderness)
Eyes: No Conjunctival Hemorrhage and Sclera Anicteric
Cardiovascular: Regular Rate and S1/S2
Pulmonary: Clear
Gastrointestinal: Soft, Non Tender, Non Distended and Normal Bowel Sounds
Extremities: Negative Edema
Skin: Other (RUE AVG site without erythema/induration)
Neurological: Other (Drowsy)
Lines: HD Cath (right femoral no erythema, mild tenderness)
Lab / Diagnostic Study Results
12/21/24 04:45
12/21/24 04:45
Abs Immat Gran (auto) 0.1 10^3/uL (0-0.05) H 12/21/24 04:45
Absolute Neuts (auto) 16.7 10^3/uL (1.4-6.5) H 12/21/24 04:45
Absolute Lymphs (auto) 0.3 10^3/uL (1.2-3.4) L 12/21/24 04:45
Absolute Monos (auto) 0.6 10^3/uL (0.1-0.6) 12/21/24 04:45
Absolute Basos (auto) 0.0 10^3/uL (0-0.2) 12/21/24 04:45
Immature Gran % 0.7 % (0-0.5) H 12/21/24 04:45
Neutrophils % 93.5 % (42.2-75.2) H 12/21/24 04:45
Lymphocytes % 1.9 % (20.5-51.1) L 12/21/24 04:45
Monocytes % 3.6 % (1.7-9.3) 12/21/24 04:45
Eosinophils % 0.1 % (0-6) 12/21/24 04:45
Basophils % 0.2 % (0-2) 12/21/24 04:45
Lactic Acid Cancelled 12/20/24 21:15
Ur Squamous Epith Cells 0-2 /LPF (Few) 12/21/24 02:28
Microbiology Results
Micro:
12/20/24 17:13 Blood Culture - Pending
Blood/Venous Gram Stain - Pending
12/21/24 04:45 MRSA Screen - Pending
Nose
12/21/24 04:45 Blood Culture - Pending
Blood/Venous
12/20/24 21:39 Blood Culture - Pending
Blood/Venous
12/20/24 CXR: No acute cardiopulmonary abnormality.
12/20/[address]: No acute intracranial hemorrhage noted. There is a new hypodense focus along the anterior left frontal lobe which measures 2.6 x 2.0 x 1.8 cm. This may represent cystic encephalomalacia or an extra-axial cystic lesion such as
arachnoid cyst with associated mass effect. The underlying cortex appears generally intact which would favor an extra-axial cyst, however further evaluation with dedicated MRI should be considered.
Assessment / Plan
# GPC cluster bacteremia, likely HD catheter source
# Fever
# Leukocytosis
# Sepsis due to bacteremia
# ESRD on HD via R fem catheter
# presence of RUE AVG, currently nonfunctional
- TTE
- Remove HD catheter when able, culture tip
- Repeat blood cx's until clear
- Continue Vancomycin pending cx data
- Trend temps/wbc
# Conditions [employer]
HTN, uncontrolled
End-stage renal disease on hemodialysis via right groin dialysis catheter
Right upper extremity AV graft balloon angioplasty (09/02/24)
Hypertensive emergency/hypertensive retinopathy with vision loss (03/2023)
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
Hx Polysubstance abuse
[2024-12-21] MEDS: PHOSLO 667 MG PO ×3 (08:37→16:19)
[2024-12-21] MEDS: LIPITOR 40 MG PO (08:37)
--- NOTE | 2024-12-21 09:51 | CON.NEURO4 ---
Addendum entered and electronically signed by Jamey Verdugo MD 12/21/24 15:18:
Studies reviewed.
I have personally examined the patient. I reviewed and agree with the [employer]CIAL SERVICES ASSOCIATE's Note.
My addenda:
Awake, interactive, prefers to keep eyes closed. No acute distress.
Speech intact.
Follows 2-step requests w/o difficulty. No tremor.
Extra-ocular movements grossly intact.
Facial movements full and symmetric. Hearing intact to normal conversational volume.
Normal UE movements bilaterally. Unable to assess right lower extremity fully due to right femoral dialysis catheter being utilized
Neck: full ROM.
Chest: no dyspnea
Heart: no JVD
Ext: (-) Clubbing, (-) Cyanosis, (-) Edema
IMPRESSIONS/RECOMMENDATIONS:
Abrupt onset of seizure described as generalized tonic-clonic movements while having hypertensive crisis
Would not at this time initiate antiseizure medication, goal of the seizure prevention would be prevention of excessive hypertension
Check MRI brain to better define the probable cystic or encephalomalacia area in the left frontal lobe by CT of head new since last imaging which did demonstrate diffuse ischemic changes (prior to this hospitalization)
Continue atorvastatin 40 mg daily
Consider EEG if recurrent events without hypertension
D/W patient
All questions answered.
Will continue to follow pending results.
Original Note:
Documented by User: Ruthann Tavares NP 12/21/24 13:19
Consultation - Neurology 4
-
CONSULTING PHYSICIAN: Jamey Verdugo MD
REFERRING PHYSICIAN: Hospitalists/JOSESITO Chavez
DICTATED BY: JOSESITO Tineo
DATE/TIME OF REQUEST: 12/20/24
DATE/TIME OF CONSULTATION: 12/21/24
Reason for Consultation: Abnormal CT head finding, headache, question of seizure
History of Present Illness:
This is a 29-year-old right-handed male who has presented to the hospital on 12/20/24 with report of fever, headache, and concern of R groin HD catheter infection. Patient is known to our inpatient Neurology service from an encounter in 2022 for a
bilateral ischemic stroke.
From previous evaluation by Neurology Dr. Franklin on 04/02/23:
'This is a 27-year-old male with newly discovered bihemispheric acute and subacute ischemic strokes with subacute visual loss previously evaluated at [facility].� UDS positive for methamphetamine, has used via insufflation but not IV
Brain MRI reviewed showing multiple small infarcts
UDS positive for amphetamines
The brain MRI is not at all suggestive of an autoimmune vasculitis which would be likely showing severe changes in the T2/FLAIR white matter.� Clinical I am not concerned for demyelinating disease such as multiple sclerosis or an autoimmune
vasculitis.
Carotid ultrasound less than 50% stenosis minimal plaque is seen bilaterally.
Transthoracic echocardiogram showed dilation of the left and right atrium along with mild left ventricular hypertrophy did not show any thrombus or obvious cardiac vegetations.
Assessment
Most likely etiology overall for ischemic stroke is methamphetamine use which can be through various mechanisms including localized vascular toxicity and vasculitis due to the drug, hypertension, or cardiac effects of methamphetamine.� � Doubtful
this is any type of autoimmune phenomenon that would require immune suppression.'
Patient was instructed to continue on aspirin 81mg daily following this event. Since that time, he went into ESRD and started HD. He has had several fistula clotting issues and was subsequently started on apixaban due to this. Patient reports that
he decided to stop taking apixaban several months ago on his own. CT head was obtained on arrival in the ER yesterday due to altered mental status, and demonstrates a hypodense focus in the left frontal lobe concerning for a cyst, new from imaging
from 2022. He also reported a severe left frontal headache and had behavior concerning for seizure while getting a CXR, prompting Neurology consultation. Patient currently reports that he feels fatigued and his head still hurts, he attributes this
to lack of sleep. He denies any vision changes, dizziness, speech/swallow difficultly, numbness, and focal weakness.
Past Medical History: Bilateral anterior circulation ischemic infarcts presumed secondary to methamphetamine usage 2022, malignant HTN, polysubstance abuse (methamphetamine via insufflation/marijuana), ESRD on HD, repeat clotting issues with
fistula sites
Surgical History: RUE AV fistula x2, R groin HD catheter
Family History: Reviewed and noncontributory.
Social History: +Marijuana and methamphetamine usage. Current smoker. Occasional alcohol.
Allergies: No known allergies.
Home Medications: See below.
Review of Symptoms:
Patient denies any fever, chest pain, shortness of breath, GI or symptoms.
�Per the HPI.�All systems are reviewed negative except above.
�
Physical Exam:
The patient is afebrile, abdomen is nondistended, breathing is unlabored, skin is warm and dry, no edema. R groin HD catheter.
NIH Stroke Scale:
I performed the NIH stroke scale on the patient on 12/21/24 at 0950. The patient scored 0 points on the NIH stroke scale assessment, which were assigned as follows: See below.
Neurologic Examination:
The patient is awake, alert and oriented x 3. He is able to follow commands and answer questions appropriately. There is no aphasia or dysarthria. On cranial nerve assessment, pupils are 3 mm bilateral, round and reactive to light and
accommodation. Visual peck are full. Extraocular movements are intact. Facial sensations are intact and bilaterally symmetrical, there is no facial asymmetry. Hearing is intact bilaterally to normal conversation volume. Tongue palate and uvula
are midline. Sternocleidomastoid strengths are full bilaterally. Motor strengths are 5/5 bilateral upper and lower extremities on medical research [place] scale. There is no drift or involuntary movement noted. Coordination is intact by finger to
nose bilaterally.
Lab Results: See below.
Neuro Imaging:
1. CT Head 12/10/24: No acute intracranial hemorrhage noted. There is a new hypodense focus along the anterior left frontal lobe which measures 2.6 x 2.0 x 1.8 cm. This may represent cystic encephalomalacia or an extra-axial cystic lesion such as
arachnoid cyst with associated mass effect. The underlying cortex appears generally intact which would favor an extra-axial cyst, however further evaluation with dedicated MRI should be considered.
Differentials for the patient's presentation include:
1. Left frontal lobe abnormality; unclear etiology, possibly cystic in nature.
2. Transient altered mental status likely due to metabolic disturbance, low concern for recurrent stroke.
3. History of bilateral stroke in the setting of methamphetamine usage.
Patient has the following risk factors for their symptoms:
Recommendations:
-MRI brain noncontrast pending.
-From a neurological perspective, would continue aspirin 81mg daily for stroke prevention. Ok to instead be on OAC if there is an indication for this.
-Currently do not see a role for EEG.
-Goal normotension.
-LDL goal <70. Continue atorvastatin 40mg daily.
-Goal normoglycemia.
-Neurological checks per unit guidelines.
-Checking blood work for metabolic abnormalities.
-DVT prophylaxis.
Discussed patient care with: Dr. Verdugo, the patient
Vital Signs and Labs
-
Vital Signs and Labs:
Vital Signs
Temp Pulse Resp BP Pulse Ox
99.8 F 110 19 130/90 95
12/21/24 12:27 12/21/24 11:30 12/21/24 11:30 12/21/24 11:30 12/21/24 11:30
Lab Results
12/21/24 04:45
12/21/24 04:45
Sodium 131 mmol/L (135-145) L 12/21/24 04:45
Potassium 3.9 mmol/L (3.5-5.1) 12/21/24 04:45
BUN 60 mg/dl (9-20) H 12/21/24 04:45
Glucose 111 mg/dl (70-99) H 12/21/24 04:45
Calcium 9.1 mg/dl (8.4-10.2) 12/21/24 04:45
Phosphorus 6.1 mg/dl (2.5-4.5) H 12/21/24 04:45
Medications
-
Active Medications
Generic Name Dose Route Start Last Admin
Trade Name Freq PRN Reason Stop Dose Admin
Acetaminophen 650 mg 12/21/24 01:29
Acetaminophen 325 Mg Tablet PO 01/18/25 01:28
Q4HPRN PRN
mild pain/ELLIS/temp> 100.4F
Albumin Human 12.5 grams 12/21/24 08:41
Albumin 12.5 Grams/50 Ml Bag *For Hemodialysis* IV 12/21/24 23:59
HD-Q1HPRN PRN
SBP < 90 mmHg
Atorvastatin Calcium 40 mg 12/21/24 08:00 12/21/24 08:37
Atorvastatin (Lipitor) 40 Mg Tablet PO 01/18/25 07:59 40 mg
DAILY MORENO Administration
Calcium Acetate 667 mg 12/21/24 08:00 12/21/24 08:37
Calcium Acetate 667 Mg Tablet PO 01/18/25 07:59 667 mg
TID @ 0800,1200,1700 MORENO Administration
Cefepime HCl 1,000 mg 12/21/24 18:00
Cefepime Hcl 1,000 Mg/11.3 Ml Vial IV
QPM MORENO
Heparin Sodium 5,000 units 12/21/24 08:00 12/21/24 08:37
Heparin 5,000 Units/Ml 1 Ml Vial SC 01/18/25 07:59 Not Given
Q12 MORENO
Sodium Bicarbonate 150 meq/ 1,150 mls @ 80 mls/hr 12/20/24 21:30 12/20/24 22:33
Sterile Water IV 1,150 mls
.[id number] MORENO Administration
Vancomycin HCl 1 each/ Device 0 mls @ 0 mls/hr 12/21/24 01:29
IV
PER PROTOCOL MORENO
As Directed
Mannitol 12.5 grams 12/21/24 08:41
Mannitol 25% (12.5 Grams/50 Ml) Vial IV 12/21/24 23:59
HD-Q1HPRN PRN
SBP < 90 mmHg
Prochlorperazine Edisylate 5 mg 12/20/24 21:22 12/21/24 09:45
Prochlorperazine 10 Mg/2 Ml Vial IV 01/17/25 21:21 5 mg
Q6HPRN PRN Administration
nausea//h/a
Sodium Chloride 0 flush 12/21/24 02:00
Sodium Chloride 0.9% (Flush) Syringe IV 01/18/25 01:59
PER PROTOCOL MORENO
Sterile Water 10 ml 12/21/24 18:00
Sterile Water For Injection 10 Ml Vial IV 01/18/25 17:59
QPM MORENO
Home Medications
�Medication �Instructions �Recorded
atorvastatin 40 mg tablet 40 mg PO DAILY 12/20/24
calcium acetate(phosphat bind) 667 667 mg PO TIDWMEAL 12/20/24
mg capsule
propranolol 80 mg tablet 80 mg PO BID 12/20/24
torsemide 100 mg tablet 100 mg PO SUTUTHSA 12/20/24
NIH Stroke Score
Subsequent NIH Scale
Date of Subsequent NIH Scale: 12/21/24
Time of Subsequent NIH Scale: 09:50
NIH Stroke Score
Level of Consciousness: 0 - Alert
LOC Questions: 0-Answers both correctly
LOC Commands: 0-Performs both correctly
Best Horizontal Gaze: 0-Normal
Visual Peck: 0=Normal, no visual loss
Facial Palsy: 0=Normal, symmetrical
Motor - Right Arm: 0=No drift 10 seconds
Motor - Left Arm: 0=No drift 10 seconds
Motor - Right Le-No drift 5 seconds
Motor - Left Le-No drift 5 seconds
Limb Ataxia: 0-Absent
Sensation: 0-Normal
Best Language: 0-No aphasia
Dysarthria: 0-Normal
Extinction and Inattention: 0-No abnormality
NIH Total Score:: 0
Modified [place] (mRS) Score
Modified [place] Scale (mRS): No symptoms
Score: 0

Documented by User: Jamey Verdugo MD 12/21/24 15:14
NIH Stroke Score
NIH Stroke Score
NIH Total Score:: 0
Modified [place] (mRS) Score
Score: 0
--- NOTE | 2024-12-21 10:11 | W.PN.HOSP.TC ---
Today's Communication/Plan
-
See plan
Assessment / Plan
Assessment / Plan
Impression
Sepsis present on admission.
CLABSI/gram-positive bacteremia suspected with source right femoral HD access
Persistent headache
Volume overload secondary to missed hemodialysis
Conditions prior to admission
ESRD secondary to uncontrolled hypertension
Essential hypertension
Hypertensive retinopathy.
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
Suspected hypercoagulable state previously on Eliquis discontinued months prior to this presentation.
Dyslipidemia.
Medical noncompliance.
History of polysubstance abuse including methamphetamines.
Tobacco use disorder
Plan:
Sepsis secondary to CLABSI.
Gram-positive bacteremia.
Interventional radiology consultation for right femoral access removal with tip culture.
Follow-up repeated blood culture for clearance.
2D echo.
Initiated empirically on vancomycin and cefepime pending final cultures
ESRD.
Nonoliguric
Metabolic acidosis secondary to sepsis and missed HD
Missed HD at least 3 sessions prior to admission
Volume overload with weight is up at 9 kg. Stable respiratory status. Chest x-ray with no infiltrates
Discussed with nephrology.
Temporal HD access to be placed.
HD schedule as per nephrology
Persistent headache
Prior history of embolic CVA
Currently not on anticoagulation. Patient self discontinued it about months ago 'no reason to take it '
Exam with no focal neurologic finding
CT head with no acute abnormalities. There is a new hypodense focus along the anterior left frontal lobe which measures 2.6 x 2.0 x 1.8 cm. This may represent cystic encephalomalacia or an extra-axial cystic lesion such as arachnoid cyst with
associated mass effect. The underlying cortex appears generally intact which would favor an extra-axial cyst, however further evaluation with dedicated MRI should be considered.
Neurology evaluation
Consider further imaging with MRI
Essential hypertension
Preadmission regimen including propranolol and torsemide on off HD days.
Hold antihypertensive given soft BP
History of substance abuse
Urine tox screen
Full code.
DVT prophylaxis heparin
Anticipated Discharge: > 48 hours
Subjective/Interval History
-
Date of Service: December 21, 2024
Objective Data
-
Labs:
Laboratory Results
12/21/24
04:45
WBC 17.9 H
Hgb 9.9 L
Hct 29.7 L
Plt Count 236
Sodium 131 L
Potassium 3.9
Chloride 100
Carbon Dioxide 15 L
BUN 60 H
Creatinine 7.1 H*
Glucose 111 H
Calcium 9.1
Total Bilirubin 0.8
AST 35
ALT 38
Alkaline Phosphatase 172 H
Vital Signs:
Vital Signs
Temp Pulse Resp BP Pulse Ox
97.9 F 85 16 106/74 95
12/21/24 07:25 12/21/24 07:00 12/21/24 07:00 12/21/24 07:00 12/21/24 07:00
I&O
12/20/24 12/21/24 12/22/24
06:59 06:59 06:59
Output Total 150 / 150
Balance -150 / -150
Physical Exam
-
General: Well Developed and No Apparent Distress
HEENT: Normocephalic, Atraumatic and Moist Mucous Membranes
Respiratory: Clear to Auscultation
Cardiac: Regular Rhythm and S1/S2; Negative Murmur, Rub or Gallop
GI: Soft, Nontender, Nondistended and Normal Bowel Sounds; Negative Organomegaly
Rectal: Deferred by Provider
Musculoskeletal: No Clubbing, No Cyanosis, No Edema and Other (Right femoral HD access site with mild erythema and tenderness.)
Skin: Negative Rash
Neuro: Nonfocal/Grossly Intact
--- NOTE | 2024-12-21 10:24 | W.CON.NEPH ---
Consultation
-
Date/Time Consultation Requested: 12/20/242105
Date/Time Consultation Performed: 12/21/24 1015
Requesting Provider: Primitivo BELLAMY
Performing Provider: Stephanie Reyes
Reason for Consultation: ESRD
Medical History
-
Chief Complaint: Headache, missed dialysis x 1 week, left rib cage pain
History of Present Illness:
29-year-old male ESRD since 03/2023 on HD MWF at [facility] nahed?, from right femoral catheter since failed in UEs including AVG, had right groin pain for a week that felt swollen at the site of his dialysis catheter after exchange last week. He
also reports he has had left rib cage pain earlier in the week due to the excruciating pain he states he misses dialysis Thursday and Thursday. He is also complaining of a left frontal parietal headache with some nausea. He said history of bacteremia
from chest wall dialysis catheter bacteremia resulting in septic emboli to brain patient has a right upper arm AVG placed several months ago however it is not functioning from thrombosis. Patient denies blurred vision, sore throat, c/o fever and
chills, hurts all over., no palpitations or cough or shortness of breath. No abdominal pain or diarrhea or urinary symptoms. He still make urine. He has history of hypotension post dialysis was seen in September after receiving dialysis session blood
pressure dropped to 70 systolic he required IVF and signed out AMA.
He has labile blood pressure postdialysis, nicotine abuse, marijuana use. Bld cx shows GPC and started on abx for CLABSI. He is still has nausea and ELLIS, neurology consulted. Nephrology consulted for HD needs.
Past Medical History
ESRD due to uncontrolled hypertension starting in 03/27/2023atient does make urine
dialysis catheter bacteremia March 2023 causing multiple septic emboli to brain
right upper arm AV fistula occlusion with repair by IR
labile blood pressure postdialysis
nicotine abuse
marijuana use
Past Surgical History: Other (Chest wall catheter dialysis Right groin dialysis catheter Right AV fistula)
Social History
Tobacco: Smoker (1PPD)
Alcohol: None
Drug: None
Personal: Single
Living: With Family
Employment: Not Employed
Family History
Father history DM 2 mother history kidney stones
No renal disease
Allergies / Home Medications
Allergy/AdvReac Type Severity Reaction Status Date / Time
No Known Allergies Allergy Verified 09/19/24 21:33
�Medication �Instructions �Recorded �Confirmed �Type
atorvastatin 40 mg tablet 40 mg PO DAILY 12/20/24 12/20/24 History
calcium acetate(phosphat bind) 667 667 mg PO TIDWMEAL 12/20/24 12/20/24 History
mg capsule
propranolol 80 mg tablet 80 mg PO BID 12/20/24 12/20/24 History
torsemide 100 mg tablet 100 mg PO SUTUTHSA 12/20/24 12/20/24 History
Review of Systems
-
All other systems: Negative unless noted
Physical Exam
Vital Signs
Vital Signs
Temp Pulse Resp BP Pulse Ox
97.9 F 85 16 106/74 95
12/21/24 07:25 12/21/24 07:00 12/21/24 07:00 12/21/24 07:00 12/21/24 07:00
Lab Results
WBC 17.9 10^3/uL (4.8-10.8) H 12/21/24 04:45
RBC 3.41 10^6/uL (4.70-6.10) L 12/21/24 04:45
Hgb 9.9 g/dL (13.0-18.0) L 12/21/24 04:45
Hct 29.7 % (39.0-52.0) L 12/21/24 04:45
Plt Count 236 10^3/uL (130-400) 12/21/24 04:45
Sodium 131 mmol/L (135-145) L 12/21/24 04:45
Potassium 3.9 mmol/L (3.5-5.1) 12/21/24 04:45
Chloride 100 mmol/L (98-107) 12/21/24 04:45
Carbon Dioxide 15 mmol/L (22-30) L 12/21/24 04:45
BUN 60 mg/dl (9-20) H 12/21/24 04:45
Creatinine 7.1 mg/dL (0.7-1.3) H* 12/21/24 04:45
eGFR 9.88 12/21/24 04:45
Glucose 111 mg/dl (70-99) H 12/21/24 04:45
Calcium 9.1 mg/dl (8.4-10.2) 12/21/24 04:45
Phosphorus 6.1 mg/dl (2.5-4.5) H 12/21/24 04:45
Albumin 4.0 g/dl (3.5-5.0) 12/21/24 04:45
Physical Exam
General: Awake, Alert, Oriented, AOx3 and No Distress
HEENT: EOMI, Anicteric and Facial Symmetry
Respiratory: Clear, Normal Excursion and Nonlabored Respirations
Cardiac: S1/S2 and Regular Rate/Rhythm
Breast: Deferred by me
Abdomen: Soft, Nontender and Nondistended
Musculoskeletal: No Cyanosis and No Edema
Skin: No Rash
Neuro: Nonfocal/Grossly Intact
Psych: Appropriate
Vascular Access: AVG (non functioning right AVG) and CVC (right femoral)
Data Reviewed
-
Radiology: Report Reviewed by me, Discussed with Physician and Discussed with Patient
Labs: Labs Reviewed by me, Discussed with Physician and Discussed with Patient
Assessment/Plan
-
Impression:
Sepsis present on admission.
CLABSI/gram-positive bacteremia suspected with source right femoral HD access
Persistent headache
ESRD secondary to uncontrolled hypertension-MWF HD-missed HD
met acidosis
Essential hypertension
Hypertensive retinopathy.
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
Anemia of CKD
Hyponatremia
Suspected hypercoagulable state previously on Eliquis discontinued months prior to this presentation.
Dyslipidemia.
Medical noncompliance.
History of polysubstance abuse including methamphetamines.
Tobacco use disorder
femoral HD catheter
Plan.
A/ sepsis from CLABSI, missed HD for 1week
metabolic parameters acceptable and not hypervolemic
check EDW , UF as tolerated in HD today
may need HD again tomorrow since he missed for 1week
will keep EDW higher 62kg with h/o syncope in September
abx per primary, dose renally
neuro follows for ELLIS, CT head noted
Bp stable
will d/c biarb IVF
if po intake is still poor ok for gentle IVF
follow h/h
d/w pt and primary
[2024-12-21] MEDS: SODIUM BICARBONATE 1150 MEQ IV (12:51)
--- NOTE | 2024-12-21 12:57 | W.PN.NEPH.HD ---
Addendum entered and electronically signed by Stephanie Bang MD 12/21/24 13:01:
correction his wts noted again, seem to be at his EDW
not vol overloaded
Original Note:
Assessment
-
pt seen during HD
vitals stable
9kg over EDW
stable resp status and no edema
UF as tolerates
CVC positional, noted IR wants to wait till bls cx neg 48hrs prior exchanging
since we are short of temp HD catheters
abx per pID
Progress Note - Hemodialysis
-
Date of Service: December 21, 2024
Duration: 30 minutes and 3 hours
Potassium Bath: 2
Calcium Bath: 2.5
Opti-Dialyzer: 160
Ultrafiltration: Other (1.5-2kg)
Blood Flow: 400
Dialysate Flow: 600
Heparin: no
EPO: no
--- NOTE | 2024-12-21 13:30 | PTCARENOTE ---
hd completed. pt offers no complaints at this time. Compazine admin for nausea w/ + relief. will monitor.
--- NOTE | 2024-12-21 14:41 | PHA.VAN.IN ---
Assessment
- Assessment
Renal Function: Patient has ESRD, on chronic Hemodialysis
Hemodialysis Schedule: MWF
Concomitant Antimicrobials: Cefepime
Plan
- Plan
Initial / Loading Dose: 1500 mg 12/20 2029
Maintenance Regimen: Dosing by random level give 500mg x1 today
Monitorin12/22 599
Pharmacokinetics Vancomycin I
- -
Patient Age: 29
Patient Sex: Male
Vancomycin Day #: 1
Indication: Bacteremia
Requesting Provider: Primitivo Harrison
Pertinent Antimicrobial Allergies:
nkda
Height / Weight:
Height 5 ft 2 in
Actual Weight 60.016 kg
Pertinent Past Medical History: ESRD on HD MWF
- Vital Signs / Lab Results
Temp Pulse Resp BP Pulse Ox
99.8 F 110 19 130/90 95
12/21/24 12:27 12/21/24 11:30 12/21/24 11:30 12/21/24 11:30 12/21/24 11:30
Lab Results - Hematology
12/20/24 12/21/24
17:13 04:45
WBC 20.8 H 17.9 H
Lab Results - Chemistry
12/20/24 12/21/24
17:13 04:45
BUN 52 H 60 H
Creatinine 6.0 H* 7.1 H*
Estimated Creat Clear 12
Albumin 4.5 4.0
12/20/24 12/20/24
17:13 21:15
Lactic Acid 1.5 Cancelled
Lab Results - Urine
12/21/24
02:28
Urine Nitrite (Reflex) Negative
Leukocyte Esterase Rfl Negative
Urine WBC (Reflex) 6-10
Ur Squamous Epith Cells 0-2
Urine Bacteria (Reflex) Few A
Microbiology Results
12/20/24 17:13 Blood Culture - Preliminary
Blood/Venous Staphylococcus aureus
Gram Stain - Preliminary
[2024-12-21] MEDS: TYLENOL 650 MG PO ×2 (16:19→23:45)
[2024-12-21] MEDS: VANCOCIN HCL 500 MG 100 IV (16:58)
--- NOTE | 2024-12-21 17:04 | CM ---
Patient with Hx ESRD on HD, polysubstance abuse, medical noncompliance with Dx sepsis, bacteremia suspect source right femoral HD access. Room air. Febrile. Receiving IV Abx. Per nurse; assist of 1 for activity.
Met with patient who resides with his father in his father's 2 story house with first floor bedroom/bath.
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
Per prior CM notes 09/02/24: [facility]
The patient has no DME or prior VN.
PCP - Genevieve Davison (not seen yet)
Pharmacy - [facility]
CM continuing to follow patient's status and mobility.
Plan probable home.
[2024-12-21] MEDS: MAXIPIME 1000 MG IV (18:22)
[2024-12-21] MEDS: STERILE WATER FOR INJECTION 10 ML IV (18:22)
[2024-12-21] MEDS: ROXICODONE 2.5 MG PO (23:45)
[2024-12-22] VITALS (82 sets, daily range): BP systolic 79–149; BP diastolic 42–95; BMI 24.4
--- NOTE | 2024-12-22 00:16 | PTCARENOTE ---
patient complaining of pain at catheter site, but wants something stronger than Tylenol. see MAR for SPRINKLER FITTER for new orders. SPRINKLER FITTER said to give Tylenol as well. Patient oxygen also dropping into 70s while sleeping, placed on 2L NC. assessment and vital
signs as charted. call patterson in reach.
[2024-12-22 04:53] LABS: Hematocrit 27.4 % (39.0-52.0); Hemoglobin 9.1 g/dL (13.0-18.0); Mean Corp Hgb Conc. 33.2 g/dL (33.0-37.0); Mean Corpuscular Volume 87.5 fL (80.0-94.0); Nucleated Red Blood Cells % 0 % (-); Platelet Count 204 10^3/uL (130-400); Red Cell Dist. Width 13.3 % (11.5-14.5)
[2024-12-22 05:26] LABS: ALT (SGPT) 97 U/L (0-50); AST (SGOT) 89 U/L (17-59); Albumin 3.2 g/dl (3.5-5.0); Alkaline Phosphatase 215 U/L (38-126); Blood Urea Nitrogen 52 mg/dl (9-20); Calcium 8.8 mg/dl (8.4-10.2); Carbon Dioxide 32 mmol/L (22-30); Chloride 95 mmol/L (98-107); Estimated Creatinine Clearance 15 ml/min; Glucose 110 mg/dl (70-99); Potassium 3.8 mmol/L (3.5-5.1); Sodium 131 mmol/L (135-145); Total Protein 5.6 g/dl (6.3-8.2); eGFR 13.14
[2024-12-22] MEDS: LIPITOR 40 MG PO (08:53)
[2024-12-22] MEDS: PHOSLO 667 MG PO ×3 (08:53→17:22)
--- NOTE | 2024-12-22 10:47 | W.PN.ID1 ---
Date of Service
Date of Service: December 22, 2024
Today's Communication
Replace Vanco with cefazolin.
See below.
Assessment / Plan
# MSSA bacteremia, likely HD catheter source
# Fever
# Leukocytosis improving
# Sepsis due to bacteremia
# ESRD on HD via R fem catheter
# presence of RUE AVG, currently nonfunctional
# Hx of S. aureus CLABSI x 2 in the past (hospitalized at [facility])
- TTE No valvular disease
- Repeat blood cx's until clear
- Per IR there is shortage of temp tunnled catheter. Will plan to exchange fem HD cath when blood cultures neg x 48hrs.
- DC Vancomycin
-Start cefazolin 2g IV q24h.
-Trend temps.
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
HTN, uncontrolled
End-stage renal disease on hemodialysis via right groin dialysis catheter
Right upper extremity AV graft balloon angioplasty (09/02/24)
Hypertensive emergency/hypertensive retinopathy with vision loss (03/2023)
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
Hx Polysubstance abuse
Chief Complaint
-: Bacteremia
Subjective / Review of Systems
Feeling better.
Vital Signs / Physical Exam
Vital Signs
Vital Signs
Temp Pulse Resp BP Pulse Ox
100.1 F 98 18 121/75 96
12/22/24 07:25 12/22/24 10:06 12/22/24 10:06 12/22/24 10:06 12/22/24 10:06
Selected Entries
12/21/24
15:42
Temp 101.0 F H
Physical Exam
Constitutional: No Acute Distress
Cardiovascular: Regular Rate and S1/S2
Pulmonary: Clear
Gastrointestinal: Soft, Non Tender, Non Distended and Normal Bowel Sounds
Neurological: AO x 3
Lines: HD Cath (right femoral: no erythema)
Objective Data
Lab Data
Lab Results
12/22/24 04:20
12/22/24 04:20
Estimated Creat Clear 15 ml/min 12/22/24 04:20
Lactic Acid Cancelled 12/20/24 21:15
Total Bilirubin 0.6 mg/dl (0.2-1.3) 12/22/24 04:20
AST 89 U/L (17-59) H 12/22/24 04:20
ALT 97 U/L (0-50) H 12/22/24 04:20
Alkaline Phosphatase 215 U/L (38-126) H 12/22/24 04:20
Most recent labs reviewed.
Micro Results:
12/22/24 09:30 Blood Culture - Pending
Blood/Venous
12/20/24 17:13 Blood Culture - Preliminary
Blood/Venous Staphylococcus aureus
Gram Stain - Final
12/20/24 21:39 Blood Culture - Preliminary
Blood/Venous Positive culture in progress
Gram Stain - Preliminary
12/21/24 04:45 MRSA Screen - Final
Nose No Methicillin Resistant Staphylococcus aureus isolated.
12/21/24 04:45 Blood Culture - Preliminary
Blood/Venous Positive culture in progress
Gram Stain - Preliminary
12/20/24 CXR: No acute cardiopulmonary abnormality.
12/20/[address]: No acute intracranial hemorrhage noted. There is a new hypodense focus along the anterior left frontal lobe which measures 2.6 x 2.0 x 1.8 cm. This may represent cystic encephalomalacia or an extra-axial cystic lesion such as
arachnoid cyst with associated mass effect. The underlying cortex appears generally intact which would favor an extra-axial cyst, however further evaluation with dedicated MRI should be considered.
--- NOTE | 2024-12-22 11:06 | W.PN.NEPH.PH ---
Today's Communication / Plan
-
HD tomorrow
Assessment/Plan
-
Impression:
Sepsis present on admission.
CLABSI/staph aureus bacteremia suspected with source right femoral HD access
Persistent headache
ESRD secondary to uncontrolled hypertension-MWF HD-missed HD
met acidosis
Essential hypertension
Hypertensive retinopathy.
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
Anemia of CKD
Hyponatremia
Suspected hypercoagulable state previously on Eliquis discontinued months prior to this presentation.
Dyslipidemia.
Medical noncompliance.
History of polysubstance abuse including methamphetamines.
Tobacco use disorder
femoral HD catheter
Plan.
A/w sepsis from CLABSI, missed HD for 1week
completed HD yesterday refusing more HD today
next one planned tomorrow-hoping he will allow
metabolic parameters acceptable
will keep EDW higher 62kg with h/o syncope in September
abx per primary, dose renally -staph aureus in cx
awaiting to have neg bld cx prior exchanging femoral catheter, echo no veg
Bp stable
for MRI brain
follow h/h
d/w pt
-
-
Date of Service: December 22, 2024
CC / HPI / ROS
-
Chief Complaint:
ESRD
History of Present Illness:
tolerated HD yesterday
BP stable, no fever
wbc improving
Review of Systems:
no cp or sob
no abd pian, or n/v
he feels at his baseline
no ELLIS
Labs
-
Labs:
WBC 11.6 10^3/uL (4.8-10.8) H 12/22/24 04:20
RBC 3.13 10^6/uL (4.70-6.10) L 12/22/24 04:20
Hgb 9.1 g/dL (13.0-18.0) L 12/22/24 04:20
Hct 27.4 % (39.0-52.0) L 12/22/24 04:20
Plt Count 204 10^3/uL (130-400) 12/22/24 04:20
Sodium 131 mmol/L (135-145) L 12/22/24 04:20
Potassium 3.8 mmol/L (3.5-5.1) 12/22/24 04:20
Chloride 95 mmol/L (98-107) L 12/22/24 04:20
Carbon Dioxide 32 mmol/L (22-30) H 12/22/24 04:20
BUN 52 mg/dl (9-20) H 12/22/24 04:20
Creatinine 5.6 mg/dL (0.7-1.3) H* 12/22/24 04:20
eGFR 13.14 12/22/24 04:20
Glucose 110 mg/dl (70-99) H 12/22/24 04:20
Calcium 8.8 mg/dl (8.4-10.2) 12/22/24 04:20
Phosphorus 6.1 mg/dl (2.5-4.5) H 12/21/24 04:45
Albumin 3.2 g/dl (3.5-5.0) L 12/22/24 04:20
Physical Exam
-
Vital Signs:
Vital Signs
Temp Pulse Resp BP Pulse Ox
100.1 F 98 18 121/75 96
12/22/24 07:25 12/22/24 10:06 12/22/24 10:06 12/22/24 10:06 12/22/24 10:06
Cardiovascular:: Regular rate and rhythm
Respiratory:: Bilateral: CTA (decreased)
Lung Excursion:: Normal
Abdomen:: Nontender and Soft
Bowel Sounds:: Normal
Extremity Edema:: None: Bilateral:
Hurt Catheter: No
--- NOTE | 2024-12-22 12:48 | W.PN.HOSP.TC ---
Today's Communication/Plan
-
Follow blood culture for clearance.
IV antibiotics
MRI of the brain
HD
Assessment / Plan
Assessment / Plan
Impression
Sepsis present on admission.
CLABSI/gram-positive bacteremia suspected with source right femoral HD access
Persistent headache
Volume overload secondary to missed hemodialysis
Conditions prior to admission
ESRD secondary to uncontrolled hypertension
Essential hypertension
Hypertensive retinopathy.
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
Suspected hypercoagulable state previously on Eliquis discontinued months prior to this presentation.
Dyslipidemia.
Medical noncompliance.
History of polysubstance abuse including methamphetamines.
Tobacco use disorder
Plan:
Sepsis secondary to CLABSI.
MSSA bacteremia
Repeated blood culture pending
2D echocardiogram with preserved biventricular function and no evidence for vegetation
Right femoral HD catheter exchanged by interventional radiology over the wire on 12/21
Pending blood culture clearance eventually removal of right femoral access with temporal access placement
Antibiotics narrowed from vancomycin to cefazolin
ESRD.
Nonoliguric
Metabolic acidosis secondary to sepsis and missed HD
Missed HD at least 3 sessions prior to admission
Volume overload with weight is up at 9 kg. Stable respiratory status. Chest x-ray with no infiltrates
Discussed with nephrology.
Temporal HD access to be placed.
HD schedule as per nephrology
Persistent headache
Transient elevation of blood pressure consider hypertensive urgency, although most of the time BP remains soft
Questionable episode of seizure possibly attributed to fever
Neurology input appreciated with no indication for antiepileptic medication.
Prior history of embolic CVA
Currently not on anticoagulation. Patient self discontinued it about months ago 'no reason to take it '
Exam with no focal neurologic finding
CT head with no acute abnormalities. There is a new hypodense focus along the anterior left frontal lobe which measures 2.6 x 2.0 x 1.8 cm. This may represent cystic encephalomalacia or an extra-axial cystic lesion such as arachnoid cyst with
associated mass effect. The underlying cortex appears generally intact which would favor an extra-axial cyst, however further evaluation with dedicated MRI should be considered.
Neurology evaluation
MRI pending
Essential hypertension
Preadmission regimen including propranolol and torsemide on off HD days.
Hold antihypertensive given soft BP
History of substance abuse
Urine tox screen
Full code.
DVT prophylaxis heparin
Anticipated Discharge: > 48 hours
Subjective/Interval History
-
Date of Service: December 22, 2024
Objective Data
-
Labs:
Laboratory Results
12/22/24
04:20
WBC 11.6 H
Hgb 9.1 L
Hct 27.4 L
Plt Count 204
Sodium 131 L
Potassium 3.8
Chloride 95 L
Carbon Dioxide 32 H
BUN 52 H
Creatinine 5.6 H*
Glucose 110 H
Calcium 8.8
Total Bilirubin 0.6
AST 89 H
ALT 97 H
Alkaline Phosphatase 215 H
Vital Signs:
Vital Signs
Temp Pulse Resp BP Pulse Ox
98.2 F 98 18 121/75 96
12/22/24 11:00 12/22/24 10:06 12/22/24 10:06 12/22/24 10:06 12/22/24 10:06
I&O
12/21/24 12/22/24 12/23/24
06:59 06:59 06:59
Intake Total 960 / 960 240 / 240
Output Total 150 / 150
Balance -150 / -150 960 / 960 240 / 240
Physical Exam
-
General: Well Developed and No Apparent Distress
HEENT: Normocephalic, Atraumatic and Moist Mucous Membranes
Respiratory: Clear to Auscultation
Cardiac: Regular Rhythm and S1/S2; Negative Murmur, Rub or Gallop
GI: Soft, Nontender, Nondistended and Normal Bowel Sounds; Negative Organomegaly
Rectal: Deferred by Provider
Musculoskeletal: No Clubbing, No Cyanosis, No Edema and Other (Right femoral HD access site with mild erythema and tenderness.)
Skin: Negative Rash
Neuro: Nonfocal/Grossly Intact
--- NOTE | 2024-12-22 13:36 | PN.CDI ---
CDI
- -
CDI:
Physician Documentation Request
Admit Date: 12/20/24 21:48
Dear Doctor Adriana,
Please review the following and provide your response in the progress notes.
Clinical Indicators:
The diagnosis of septic shock was documented in H&P, but is not consistently noted in subsequent documentation.
1 500 cc bolus given on 12/20, 1 250 cc bolus given on 12/20, no pressors noted.
Please clarify the following:
____ - Septic shock was present
____ - Septic shock was ruled out
____ - Other
Use of terms such as suspected, likely, concern for, or probable (associated with a specific diagnosis that is being evaluated, monitored, or treated as if it exists) are acceptable and can be coded in the inpatient setting, when documented at the
time of discharge.
Thank you,
Latisha Norwood RN, BSN
CDI Specialist
tiger text
Please use your independent medical judgment in providing your response.
--- NOTE | 2024-12-22 14:03 | PTCARENOTE ---
Assumed care of patient at beginning of this shift from previous RN. Patient mostly sleeping today; prefers lights out and door closed despite encouragement to open blinds. Lungs diminished and shallow; POx 95-98% but does go down to high 80s when
asleep. Patient states he does have sleep apnea but does not use CPAP or oxygen at home; states he 'just sleeps.' MRI completed as ordered. NSR/ST on monitor. See worklist for full assessment and vital signs; cannot verify accuracy of vital signs
prior to 0700.
[2024-12-22] MEDS: ANCEF 5 IV (17:22)
--- NOTE | 2024-12-22 22:30 | W.PN.UPDATE ---
Update Note
Progress Note Update
BP 89/43 MAP 57. no active bleeding. not on anticoagulation, Will order Midodrine 5mg POx1, H&H now
H&H results noted 9.1->7.8
Patient seen and evaluated, states he feels tired, and he thinks if he stands he may feel dizzy, lying flat in bed at present. Denies shortness of breath, chest pain, chills, nosea, vomiting. LBM was few days ago, unsure if noted any blood or tarry
stools. Pale skin, Lungs clear, RRR, + BS, mild tender through out, soft abdomen, reports voiding without difficulty.
Addressed low hgb, agrees for blood transfusion as he is symptomatic. VS 95/49 70 89-92%, If continues to be hypotensive may need pressors.
Blood consent signed and in the chart,
VS 114/67 72 15 98.0 93%
1 unit of PRBC ordered
HD AM
[2024-12-22 23:01] LABS: Hematocrit 23.4 % (39.0-52.0); Hemoglobin 7.8 g/dL (13.0-18.0)
--- NOTE | 2024-12-22 23:54 | PTCARENOTE ---
pt hypotensive with bp 80/48. Asymptomatic, no c/o dizziness or lightheadedness. Appears drowsy but am told this is his baseline. RIVER PILOT notified via tiger text. 5mg PO midodrine ordered and given. Stat H&H ordered and drawn. Hgb 7.8 from 9.1 this am.
No active signs of bleeding. Type and screen ordered and drawn, RIVER PILOT up to see patient and obtain blood consent. 1unit PRBC ordered. Abdominal US ordered.
[2024-12-23] VITALS (51 sets, daily range): BP systolic 83–173; BP diastolic 49–118; BMI 24.9
[2024-12-23 00:37] LABS: Blood Urea Nitrogen 58 mg/dl (9-20); Calcium 8.5 mg/dl (8.4-10.2); Carbon Dioxide 28 mmol/L (22-30); Chloride 93 mmol/L (98-107); Estimated Creatinine Clearance 12 ml/min; Glucose 118 mg/dl (70-99); Potassium 3.8 mmol/L (3.5-5.1); Sodium 131 mmol/L (135-145); eGFR 10.59
--- NOTE | 2024-12-23 01:21 | PTCARENOTE ---
1 unit PRBC started at 01:19
[2024-12-23 06:02] LABS: Hematocrit 28.1 % (39.0-52.0); Hemoglobin 9.4 g/dL (13.0-18.0); Mean Corp Hgb Conc. 33.5 g/dL (33.0-37.0); Mean Corpuscular Volume 87.0 fL (80.0-94.0); Nucleated Red Blood Cells % 0 % (-); Platelet Count 239 10^3/uL (130-400); Red Cell Dist. Width 14.1 % (11.5-14.5)
[2024-12-23 06:18] LABS: ALT (SGPT) 62 U/L (0-50); AST (SGOT) 41 U/L (17-59); Albumin 3.4 g/dl (3.5-5.0); Alkaline Phosphatase 239 U/L (38-126); Blood Urea Nitrogen 63 mg/dl (9-20); Calcium 9.0 mg/dl (8.4-10.2); Carbon Dioxide 28 mmol/L (22-30); Chloride 96 mmol/L (98-107); Estimated Creatinine Clearance 12 ml/min; Glucose 97 mg/dl (70-99); Potassium 3.5 mmol/L (3.5-5.1); Sodium 131 mmol/L (135-145); Total Protein 6.0 g/dl (6.3-8.2); eGFR 9.88
[2024-12-23] MEDS: LIPITOR 40 MG PO (09:03)
[2024-12-23] MEDS: PHOSLO 667 MG PO ×2 (09:03→17:15)
--- NOTE | 2024-12-23 09:46 | W.PN.ID1 ---
Date of Service
Date of Service: December 23, 2024
Today's Communication
Continue cefazolin.
Assessment / Plan
# MSSA bacteremia, likely HD catheter source
# Fever - resolved
# Leukocytosis
# ESRD on HD via R fem catheter
# presence of RUE AVG, currently nonfunctional
# Hx of S. aureus CLABSI x 2 in the past (hospitalized at [facility])
- TTE No valvular disease
- Repeat blood cx's until clear
- Per IR there is shortage of temp tunneled catheter. Will plan to exchange fem HD cath next week when blood cultures neg x 48hrs.
- Continue cefazolin 2g IV q24h.
-Trend wbc
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
HTN, uncontrolled
End-stage renal disease on hemodialysis via right groin dialysis catheter
Right upper extremity AV graft balloon angioplasty (09/02/24)
Hypertensive emergency/hypertensive retinopathy with vision loss (03/2023)
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
Hx Polysubstance abuse
Chief Complaint
-: Bacteremia
Subjective / Review of Systems
Feels better.
Vital Signs / Physical Exam
Vital Signs
Vital Signs
Temp Pulse Resp BP Pulse Ox
98.7 F 83 15 125/73 93
12/23/24 07:31 12/23/24 07:00 12/23/24 07:00 12/23/24 07:00 12/23/24 07:00
Physical Exam
Constitutional: No Acute Distress
Cardiovascular: Regular Rate and S1/S2
Pulmonary: Clear
Gastrointestinal: Soft, Non Tender and Non Distended
Extremities: Edema
Wound: Other (RUE AVG site no induration/erythema)
Neurological: AO x 3
Lines: HD Cath (right femoral: no erythema)
Objective Data
Lab Data
Lab Results
12/23/24 05:40
Estimated Creat Clear 12 ml/min 12/23/24 05:40
Lactic Acid Cancelled 12/20/24 21:15
Total Bilirubin 0.6 mg/dl (0.2-1.3) 12/23/24 05:40
AST 41 U/L (17-59) 12/23/24 05:40
ALT 62 U/L (0-50) H 12/23/24 05:40
Alkaline Phosphatase 239 U/L (38-126) H 12/23/24 05:40
Most recent labs reviewed.
Micro Results:
12/21/24 04:45 Blood Culture - Preliminary
Blood/Venous S aureus-Methicillin Sensitive
Gram Stain - Preliminary
12/20/24 21:39 Blood Culture - Preliminary
Blood/Venous S aureus-Methicillin Sensitive
Gram Stain - Preliminary
12/22/24 09:30 Blood Culture - Preliminary
Blood/Venous No Growth in 24 hours- Final report to follow
12/20/24 17:13 Blood Culture - Final
Blood/Venous S aureus-Methicillin Sensitive
Gram Stain - Final
12/23/24 06:31 Blood Culture - Pending
Blood/Venous
12/23/24 05:40 Blood Culture - Pending
Blood/Venous
12/21/24 04:45 MRSA Screen - Final
Nose No Methicillin Resistant Staphylococcus aureus isolated.
12/20/24 CXR: No acute cardiopulmonary abnormality.
12/20/[address]: No acute intracranial hemorrhage noted. There is a new hypodense focus along the anterior left frontal lobe which measures 2.6 x 2.0 x 1.8 cm. This may represent cystic encephalomalacia or an extra-axial cystic lesion such as
arachnoid cyst with associated mass effect. The underlying cortex appears generally intact which would favor an extra-axial cyst, however further evaluation with dedicated MRI should be considered.
--- NOTE | 2024-12-23 12:12 | CM ---
Pt on IV abx and HD. Current dialysis access is nonfunctional, plan for new fem HD cath next week when blood cultures neg x 48hrs.
Plan: CM to follow to coordinate discharge needs.
--- NOTE | 2024-12-23 12:56 | W.PN.NEPH.HD ---
Assessment
-
Patient seen for dialysis
Catheter completely dysfunctional cannot push or pull will need to be exchanged to another tunneled catheter as temp catheter is not available
Maintain antibiotic
Dialysis will be done tomorrow
Progress Note - Hemodialysis
-
Date of Service: December 23, 2024
[2024-12-23] MEDS: PHOSLO PO ×2 (14:01→17:15)
--- NOTE | 2024-12-23 14:28 | PTCARENOTE ---
Assumed care of patient at beginning of this shift from previous RN. Patient for repeat H&H; discussed with Dr San that patient can have blood drawn with HD. Patient was scheduled for 12:30 HD; however HD RN stated cath site was not working.
Patient currently in [facility] to have cath exchanged. HD RN with draw H&H with HD when patient returns. Patient has taken off monitor multiple times; he is cooperative to place back. Dr Wright updated.
[2024-12-23] MEDS: ANCEF 5 IV (15:57)
[2024-12-23] MEDS: HEPARIN 500 UNITS IV ×2 (16:00→17:05)
[2024-12-23 16:09] LABS: Hematocrit 31.3 % (39.0-52.0); Hemoglobin 10.4 g/dL (13.0-18.0)
--- NOTE | 2024-12-23 16:21 | W.PN.NEPH.HD ---
Assessment
-
Patient seen on dialysis
Systolic blood pressure currently stable at u/f
IR placed new tunneled catheter via exchange of dysfunctional catheter in right groin at my request ([email or web address])
Progress Note - Hemodialysis
-
Date of Service: December 23, 2024
Duration: 30 minutes and 3 hours
Potassium Bath: 3
Calcium Bath: 2.5
Opti-Dialyzer: 160
Ultrafiltration: EDW
Blood Flow: 400
Dialysate Flow: 600
Heparin: none
--- NOTE | 2024-12-23 17:10 | W.PN.HOSP.TC ---
Today's Communication/Plan
-
Right femoral HD access exchange
HD
Antibiotics
Follow blood cultures for clearance
Follow hemoglobin, transfuse if below 8
Assessment / Plan
Assessment / Plan
Impression
Sepsis present on admission.
CLABSI/gram-positive bacteremia suspected with source right femoral HD access
Persistent headache
Volume overload secondary to missed hemodialysis
Conditions prior to admission
ESRD secondary to uncontrolled hypertension
Essential hypertension
Hypertensive retinopathy.
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
Suspected hypercoagulable state previously on Eliquis discontinued months prior to this presentation.
Dyslipidemia.
Medical noncompliance.
History of polysubstance abuse including methamphetamines.
Tobacco use disorder
Plan:
Sepsis secondary to CLABSI.
MSSA bacteremia
Repeated blood culture pending
2D echocardiogram with preserved biventricular function and no evidence for vegetation
Right femoral HD catheter exchanged by [facility] on 12/23. Follow tip cultures
Follow blood culture for clearance
Antibiotics narrowed from vancomycin to cefazolin
ESRD.
Nonoliguric
Metabolic acidosis secondary to sepsis and missed HD
Missed HD at least 3 sessions prior to admission
Volume overload with weight is up at 9 kg. Stable respiratory status. Chest x-ray with no infiltrates
Discussed with nephrology.
Temporal HD access to be placed.
HD schedule as per nephrology
Acute on chronic anemia with no evidence of acute blood loss. Hemoglobin trending down from 9.1-7.8. Noted to be hypotensive, although blood pressure on the lower side chronically.
Less likely hemolysis. Bilirubin normal
Transfused 1 unit of packed red blood cells on 12/23.
Follow hemoglobin daily
Persistent headache
Transient elevation of blood pressure consider hypertensive urgency, although most of the time BP remains soft
Questionable episode of seizure possibly attributed to fever
Neurology input appreciated with no indication for antiepileptic medication.
Prior history of embolic CVA
Currently not on anticoagulation. Patient self discontinued it about months ago 'no reason to take it '
Exam with no focal neurologic finding
CT head with no acute abnormalities. There is a new hypodense focus along the anterior left frontal lobe which measures 2.6 x 2.0 x 1.8 cm. This may represent cystic encephalomalacia or an extra-axial cystic lesion such as arachnoid cyst with
associated mass effect. The underlying cortex appears generally intact which would favor an extra-axial cyst, however further evaluation with dedicated MRI should be considered.
Neurology evaluation
MRI with no acute abnormalities
Essential hypertension
Preadmission regimen including propranolol and torsemide on off HD days.
Hold antihypertensive given soft BP
History of substance abuse
Urine tox screen
Full code.
DVT prophylaxis heparin
Anticipated Discharge: > 48 hours
Subjective/Interval History
-
Date of Service: December 23, 2024
Objective Data
-
Labs:
Laboratory Results
12/23/24 12/23/24 12/23/24
05:40 12:28 15:00
WBC 14.3 H
Hgb 9.4 L D 10.4 L Pending
Hct 28.1 L 31.3 L Pending
Plt Count 239
Sodium 131 L
Potassium 3.5
Chloride 96 L
Carbon Dioxide 28
BUN 63 H
Creatinine 7.1 H*
Glucose 97
Calcium 9.0
Total Bilirubin 0.6
AST 41
ALT 62 H
Alkaline Phosphatase 239 H
12/23/24
21:00
WBC
Hgb Pending
Hct Pending
Plt Count
Sodium
Potassium
Chloride
Carbon Dioxide
BUN
Creatinine
Glucose
Calcium
Total Bilirubin
AST
ALT
Alkaline Phosphatase
Vital Signs:
Vital Signs
Temp Pulse Resp BP Pulse Ox
98.9 F 74 18 156/101 97
12/23/24 15:09 12/23/24 15:40 12/23/24 15:40 12/23/24 15:40 12/23/24 14:20
I&O
12/22/24 12/23/24 12/24/24
06:59 06:59 06:59
Intake Total 960 / 960 490 / 490 240 / 240
Output Total 225 / 225
Balance 960 / 960 490 / 490
Physical Exam
-
General: Well Developed and No Apparent Distress
HEENT: Normocephalic, Atraumatic and Moist Mucous Membranes
Respiratory: Clear to Auscultation
Cardiac: Regular Rhythm and S1/S2; Negative Murmur, Rub or Gallop
GI: Soft, Nontender, Nondistended and Normal Bowel Sounds; Negative Organomegaly
Rectal: Deferred by Provider
Musculoskeletal: No Clubbing, No Cyanosis, No Edema and Other (Right femoral HD access site with mild erythema and tenderness.)
Skin: Negative Rash
Neuro: Nonfocal/Grossly Intact
[2024-12-23] MEDS: RETACRIT 4000 UNITS IV (17:18)
[2024-12-23] MEDS: HEPARIN 6500 UNITS INTRACATH (19:52)
[2024-12-23] MEDS: TYLENOL 650 MG PO (21:26)
--- NOTE | 2024-12-24 00:06 | PTCARENOTE ---
Patient repetitively removing monitor leads, pox, and bp cuff. RN and pct reapplying each time and explaining to patient the need for the leads and monitoring his vs due to his acuity level, diagnosis, and comorbidities. Patient states, 'technically
I don't have to wear them'. RN continues to provide education and encourage compliance. RN notified TRAPEZE ARTIST as well. Will continue to monitor and encourage compliance.
--- NOTE | 2024-12-24 02:14 | W.PN.UPDATE ---
Update Note
Progress Note Update
Notified by RN patient refusing to keep tele monitor on. Discussed with patient importance of keeping monitor on - patient verbalized understanding. Discussed with RN.
--- NOTE | 2024-12-24 05:06 | PTCARENOTE ---
Attempted to get labwork and am weight. Patient refusing at this time. Continues to refuse monitor leads as well.
[2024-12-24 06:00] VITALS: BP 169/115
[2024-12-24 06:06] LABS: Hematocrit 30.4 % (39.0-52.0); Hemoglobin 10.1 g/dL (13.0-18.0); Mean Corp Hgb Conc. 33.2 g/dL (33.0-37.0); Mean Corpuscular Volume 86.4 fL (80.0-94.0); Nucleated Red Blood Cells % 0 % (-); Platelet Count 277 10^3/uL (130-400); Red Cell Dist. Width 14.5 % (11.5-14.5)
[2024-12-24 06:34] LABS: ALT (SGPT) 43 U/L (0-50); AST (SGOT) 55 U/L (17-59); Albumin 3.7 g/dl (3.5-5.0); Alkaline Phosphatase 343 U/L (38-126); Blood Urea Nitrogen 31 mg/dl (9-20); Calcium 9.3 mg/dl (8.4-10.2); Carbon Dioxide 25 mmol/L (22-30); Chloride 100 mmol/L (98-107); Estimated Creatinine Clearance 19 ml/min; Glucose 105 mg/dl (70-99); Potassium 3.9 mmol/L (3.5-5.1); Sodium 135 mmol/L (135-145); Total Protein 6.5 g/dl (6.3-8.2); eGFR 17.08
--- NOTE | 2024-12-24 08:20 | PTCARENOTE ---
Pt refusing to wear monitor , wants to be left alone. Will attempt to asses later , no distress noted at this time.
[2024-12-24] MEDS: PHOSLO 667 MG PO (08:45)
[2024-12-24] MEDS: LIPITOR 40 MG PO (08:45)
--- NOTE | 2024-12-24 09:05 | W.PN.NEPH.PH ---
Today's Communication / Plan
-
Observe
Will likely have to reinitiate antihypertensives: propanolol
Assessment/Plan
-
Impression:
Sepsis present on admission.
CLABSI/staph aureus bacteremia suspected with source right femoral HD access
Persistent headache
ESRD secondary to uncontrolled hypertension-MWF HD-missed HD
met acidosis
Essential hypertension
Hypertensive retinopathy.
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
Anemia of CKD
Hyponatremia
Suspected hypercoagulable state previously on Eliquis discontinued months prior to this presentation.
Dyslipidemia.
Medical noncompliance.
History of polysubstance abuse including methamphetamines.
Tobacco use disorder
femoral HD catheter
Plan.
A/w sepsis from CLABSI, missed HD for 1week prior to admission
completed HD yesterday, tunneled catheter was exchanged as catheter was dysfunctional
next dialysis will be on Thursday, patient clinically volume overloaded with noted ascites by abdominal ultrasound
abx per primary, dose renally -staph aureus in cx: remains on Cefazolin
12/23/2024 blood cultures negative so far x 24-hour
H&H at 10.1 following transfusion on 12/23
Bp elevated in setting of volume overload
-
-
Date of Service: December 24, 2024
CC / HPI / ROS
-
Chief Complaint:
ESRD
History of Present Illness:
tolerated HD yesterday
BP elevated no fever
wbc improving
Review of Systems:
no cp or sob
no abd pian, or n/v
he feels at his baseline
no ELLIS
Labs
-
Labs:
WBC 14.5 10^3/uL (4.8-10.8) H 12/24/24 05:58
RBC 3.52 10^6/uL (4.70-6.10) L 12/24/24 05:58
Hgb 10.1 g/dL (13.0-18.0) L 12/24/24 05:58
Hct 30.4 % (39.0-52.0) L 12/24/24 05:58
Plt Count 277 10^3/uL (130-400) 12/24/24 05:58
Sodium 135 mmol/L (135-145) 12/24/24 05:58
Potassium 3.9 mmol/L (3.5-5.1) 12/24/24 05:58
Chloride 100 mmol/L (98-107) 12/24/24 05:58
Carbon Dioxide 25 mmol/L (22-30) 12/24/24 05:58
BUN 31 mg/dl (9-20) H 12/24/24 05:58
Creatinine 4.5 mg/dL (0.7-1.3) H* 12/24/24 05:58
eGFR 17.08 12/24/24 05:58
Glucose 105 mg/dl (70-99) H 12/24/24 05:58
Calcium 9.3 mg/dl (8.4-10.2) 12/24/24 05:58
Phosphorus 6.1 mg/dl (2.5-4.5) H 12/21/24 04:45
Albumin 3.7 g/dl (3.5-5.0) 12/24/24 05:58
Physical Exam
-
Vital Signs:
Vital Signs
Temp Pulse Resp BP Pulse Ox
98.0 F 82 13 169/115 94
12/24/24 07:57 12/23/24 23:59 12/23/24 23:59 12/24/24 06:00 12/24/24 06:30
Cardiovascular:: Regular rate and rhythm
--- NOTE | 2024-12-24 09:16 | W.PN.ID1 ---
Date of Service
Date of Service: December 24, 2024
Today's Communication
Continue antibiotics.
Assessment / Plan
# MSSA bacteremia, likely HD catheter source
# Fever - resolved
# Leukocytosis
# ESRD on HD via R fem catheter
# presence of RUE AVG, currently nonfunctional
# Hx of S. aureus CLABSI x 2 in the past (hospitalized at [facility])
- TTE No valvular disease
- Repeat blood cx's until clear
- Right femoral HD catheter replaced yesterday.
- Continue cefazolin 2g IV q24h.
- Trend wbc
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
HTN, uncontrolled
End-stage renal disease on hemodialysis via right groin dialysis catheter
Right upper extremity AV graft balloon angioplasty (09/02/24)
Hypertensive emergency/hypertensive retinopathy with vision loss (03/2023)
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
Hx Polysubstance abuse
Chief Complaint
-: Bacteremia
Subjective / Review of Systems
Patient seen and examined. Reports some discomfort right groin HD site.
Review of Systems: No Fever and No Chills
Vital Signs / Physical Exam
Vital Signs
Vital Signs
Temp Pulse Resp BP Pulse Ox
98.0 F 82 13 169/115 94
12/24/24 07:57 12/23/24 23:59 12/23/24 23:59 12/24/24 06:00 12/24/24 06:30
Physical Exam
Constitutional: No Acute Distress and Comfortable
Cardiovascular: Regular Rate and S1/S2; Negative S3/S4
Pulmonary: Clear
Gastrointestinal: Soft, Non Tender and Non Distended
Extremities: Edema
Wound: Other (RUE AVG site no induration/erythema)
Neurological: AO x 3
Lines: HD Cath (right femoral: no erythema)
Objective Data
Lab Data
Lab Results
12/24/24 05:58
12/24/24 05:58
Estimated Creat Clear 19 ml/min 12/24/24 05:58
Lactic Acid Cancelled 12/20/24 21:15
Total Bilirubin 0.5 mg/dl (0.2-1.3) 12/24/24 05:58
AST 55 U/L (17-59) 12/24/24 05:58
ALT 43 U/L (0-50) 12/24/24 05:58
Alkaline Phosphatase 343 U/L (38-126) H 12/24/24 05:58
Most recent labs reviewed.
Micro Results:
12/22/24 09:30 Blood Culture - Preliminary
Blood/Venous Positive culture in progress
Gram Stain - Preliminary
12/23/24 06:31 Blood Culture - Preliminary
Blood/Venous No Growth in 24 hours- Final report to follow
12/23/24 05:40 Blood Culture - Preliminary
Blood/Venous No Growth in 24 hours- Final report to follow
12/23/24 15:25 Catheter Tip Culture - Pending
Catheter Tip
12/21/24 04:45 Blood Culture - Preliminary
Blood/Venous S aureus-Methicillin Sensitive
Gram Stain - Preliminary
12/20/24 21:39 Blood Culture - Preliminary
Blood/Venous S aureus-Methicillin Sensitive
Gram Stain - Preliminary
12/20/24 17:13 Blood Culture - Final
Blood/Venous S aureus-Methicillin Sensitive
Gram Stain - Final
12/21/24 04:45 MRSA Screen - Final
Nose No Methicillin Resistant Staphylococcus aureus isolated.
12/20/24 CXR: No acute cardiopulmonary abnormality.
12/20/[address]: No acute intracranial hemorrhage noted. There is a new hypodense focus along the anterior left frontal lobe which measures 2.6 x 2.0 x 1.8 cm. This may represent cystic encephalomalacia or an extra-axial cystic lesion such as
arachnoid cyst with associated mass effect. The underlying cortex appears generally intact which would favor an extra-axial cyst, however further evaluation with dedicated MRI should be considered.
Care Review
Plan reviewed with: Physician (Nephrology)
[2024-12-24 10:07] VITALS: BP 144/87
--- NOTE | 2024-12-24 11:17 | PTCARENOTE ---
Pt wants to go home, now stating he will leave AMA asked for form Dr Shoaib Edward TT.
--- NOTE | 2024-12-24 11:32 | PTCARENOTE ---
Pt refuses t weaar monitor limb restriction band and ID band .
--- NOTE | 2024-12-24 12:00 | PTCARENOTE ---
DR Edward talking with pt.
--- NOTE | 2024-12-24 12:26 | PTCARENOTE ---
Pt signed AMA form after talking with DR patterson. Pt walked to front lobby where his ride will get him. IV removed
--- NOTE | 2024-12-24 12:38 | W.DCSUMMARY ---
Discharge Summary
Discharge Data
Date of Admission: 12/20/24
Date of Discharge: 12/24/24
-
Pending Results: No
Hospital Course
I was notified by nursing that Mr. Sam Macias wanted to leave AMA. I tried to convince him to stay in the hospital as culture data has not/is not adequately no growth to date. Last blood culture from the no growth however culture from the
there is growth. As this was likely CLABSI related bacteremia MSSA per ID in mind discussion today would want to see at least 96 hours negative culture data to define duration of antibiotic requirements. ID did state that he could do 2 g 2 g
3 g Ancef post HD sessions but we do not have duration to know for how long or could give oral Keflex renally dosed but this is an effective treatment for MSSA bacteremia. I discussed this with Sam and he stated that he would like to leave still.
He is competent and does have capacity as he is able to tell me that this has happened to him 4 times now and he is still here. I told him my biggest concern is developing septic shock endocarditis strokes heart attacks gut ischemia and even
if this is not properly treated. He was able to verbalize these consequences back to me and after that signed AMA paperwork. He tells me that he would like to take the Keflex orally even though that it will be ineffective but it is better than
nothing and I told him that maybe he could speak with his hemodialysis unit which is [facility]
Left AMA
Discharge Plan
-
Patient Disposition: Against Medical Advice
Prescriptions:
New
cephalexin 500 mg capsule
500 mg PO .after HD days 42 Days Qty: 18 0RF
Rx Instructions:
Take 1 cap adter HD
propranolol 20 mg tablet
20 mg PO BID Qty: 60 0RF
Continued
atorvastatin 40 mg Tablet
40 mg PO DAILY
torsemide 100 mg Tablet
100 mg PO SUTUTHSA
Patient Comments:
12/20/2024, takes on non-dialysis days.
calcium acetate(phosphat bind) 667 mg Capsule
667 mg PO TIDWMEAL
Discontinued
propranolol 80 mg Tablet
80 mg PO BID
Discharge Date and Time
Discharge Date/Time: 12/24/24 12:20
Print Language: EQUATORIAL GUINEAN
== END 2024-12-24 12:20 | disposition left against medical advice (07) | DRG 314 ==
LOC: IMU 21:48
PROVIDERS: Clinical Nurse Specialist Family Health; Nurse Practitioner Gerontology; Radiology Diagnostic Radiology; Specialist; ADMITTING PHYSICIAN Internal Medicine; ATTENDING PHYSICIAN Hospitalist; CONSULT PHYSICIAN Internal Medicine Infectious Disease; CONSULT PHYSICIAN Psychiatry & Neurology Neurology; EMERGENCY PHYSICIAN Emergency Medicine; OTHER PHYSICIAN Internal Medicine
PROC: 5A1D70Z Performance of Urinary Filtration, Intermittent, Less than 6 Hours Per Day (ICD-10-PCS; 2024-12-21)
PROC: 02H633Z Insertion of Infusion Device into Right Atrium, Percutaneous Approach (ICD-10-PCS; 2024-12-23)
PROC: 30233N1 Transfusion of Nonautologous Red Blood Cells into Peripheral Vein, Percutaneous Approach (ICD-10-PCS; 2024-12-23)
PROC: 02PYX3Z Removal of Infusion Device from Great Vessel, External Approach (ICD-10-PCS; 2024-12-23)
PROC: 0JPWXXZ Removal of Tunneled Vascular Access Device from Lower Extremity Subcutaneous Tissue and Fascia, External Approach (ICD-10-PCS; 2024-12-23)
PROC: 0JHL3XZ Insertion of Tunneled Vascular Access Device into Right Upper Leg Subcutaneous Tissue and Fascia, Percutaneous Approach (ICD-10-PCS; 2024-12-23)
PROC: B5181ZA Fluoroscopy of Superior Vena Cava using Low Osmolar Contrast, Guidance (ICD-10-PCS; 2024-12-23)
DX: T80.211A Bloodstream infection due to central venous catheter, initial encounter (principal); A41.01 Sepsis due to Methicillin susceptible Staphylococcus aureus; N18.6 End stage renal disease; R65.21 Severe sepsis with septic shock; E87.20 Acidosis, unspecified; E87.1 Hypo-osmolality and hyponatremia; D68.59 Other primary thrombophilia; I12.0 Hypertensive chronic kidney disease with stage 5 chronic kidney disease or end stage renal disease; F17.210 Nicotine dependence, cigarettes, uncomplicated; I95.3 Hypotension of hemodialysis; F12.90 Cannabis use, unspecified, uncomplicated; F19.11 Other psychoactive substance abuse, in remission; D63.1 Anemia in chronic kidney disease; E78.5 Hyperlipidemia, unspecified; H35.039 Hypertensive retinopathy, unspecified eye; R56.9 Unspecified convulsions; Y84.8 Other medical procedures as the cause of abnormal reaction of the patient, or of later complication, without mention of misadventure at the time of the procedure; Y92.9 Unspecified place or not applicable; Z53.29 Procedure and treatment not carried out because of patient's decision for other reasons; Z99.2 Dependence on renal dialysis; Z91.158 Patient's noncompliance with renal dialysis for other reason; Z83.3 Family history of diabetes mellitus; Z84.1 Family history of disorders of kidney and ureter; Z86.73 Personal history of transient ischemic attack (TIA), and cerebral infarction without residual deficits; Z79.82 Long term (current) use of aspirin
CPT/HCPCS: 36558; 70450; 70551; 71045; 76700; 77001; 80048; 80053; 80202; 81003; 81015; 83605; 83735; 84100; 85014; 85018; 85025; 86850; 86900; 86901; 86920; 87040; 87070; 87084; 87147; 87150; 87186; 87205; 93005; 93306; 96361; 96365; 96366; 96375; 99285; C1750; C1769; G0257; P9016; P9047; Q5106

== ENCOUNTER 2025-03-08 08:44 | Emergency (ER) | payer OTHER, SELFPAY ==
[2025-03-08 08:51] VITALS: BP 230/154
[2025-03-08 09:22] LABS: Hematocrit 34.6 % (39.0-52.0); Hemoglobin 11.7 g/dL (13.0-18.0); Mean Corp Hgb Conc. 33.8 g/dL (33.0-37.0); Mean Corpuscular Volume 86.9 fL (80.0-94.0); Nucleated Red Blood Cells % 0 % (-); Platelet Count 228 10^3/uL (130-400); Red Cell Dist. Width 13.8 % (11.5-14.5)
[2025-03-08 09:48] LABS: ALT (SGPT) 29 U/L (0-50); AST (SGOT) 28 U/L (17-59); Albumin 5.1 g/dl (3.5-5.0); Alkaline Phosphatase 109 U/L (38-126); Blood Urea Nitrogen 68 mg/dl (9-20); Calcium 9.7 mg/dl (8.4-10.2); Carbon Dioxide 16 mmol/L (22-30); Chloride 109 mmol/L (98-107); Glucose 116 mg/dl (70-99); Potassium 4.5 mmol/L (3.5-5.1); Sodium 139 mmol/L (135-145); Total Protein 7.9 g/dl (6.3-8.2); eGFR 9.72
--- NOTE | 2025-03-08 10:24 | ED.GENMED ---
History of Present Illness
<Alicia Jimenez, TELEGRAPH SERVICE CLERK - Last Filed: 03/08/25 15:56>
General
Chief Complaint: Abnormal Lab Value
Source: patient
Exam Limitations: none
Time Seen by Provider: 03/08/25 10:24
Nursing documentation reviewed up to this point in time: agreed with
History of Present Illness
History of Present Illness:
29-year-old male with history of HTN, renal failure on dialysis states he went for his dialysis today but they sent him here for medical clearance. He states he missed his last week's dialysis on Thursday and Thursday, he went and had his right
groin dialysis catheter replaced on Thursday and went for dialysis today. He denies headache, change in vision, chest pain, SOB, abdominal pain, numbness tingling or weakness in his extremities. He states 'I do better when my blood pressure is high,
I do not do well when my blood pressure is in the normal range.'
Past History
<Alicia Jimenez, TELEGRAPH SERVICE CLERK - Last Filed: 03/08/25 15:56>
Past History
ED Past Medical History: HTN and Renal failure (Right groin dialysis catheter, dialysis [facility])
Social History
Personal: Single
Living: with family
Employment: Employed
<Juan Green, DO - Last Filed: >
Past History
ED Past Medical History: None
ED Past Surgical History: None
Social History
Tobacco: Smoker
Alcohol: None
Review of Systems
<Alicia Jimenez, TELEGRAPH SERVICE CLERK - Last Filed: 03/08/25 15:56>
Review of Systems
Allergies reviewed?: Yes
All Other Systems: ROS reviewed and negative except as documented in HPI and ROS
Constitutional: Denies fever or fatigue
Respiratory: Denies trouble breathing
Cardiac: Denies chest pain
ABD/GI: Denies nausea
Musculoskeletal: Denies edema
Skin: Reports no symptoms
Neurological: Denies dizzy, headache, weakness or numbness
Phy Exam
<Alicia Jimenez, TELEGRAPH SERVICE CLERK - Last Filed: 03/08/25 15:56>
Physical Exam
Physical Exam:
GENERAL: No acute distress. A&Ox3.
CONSTITUTIONAL: Afebrile.
EYES: clear, conjunctivae normal
ENMT: moist mucus membranes, Pharynx nl
RESPIRATORY: Regular respirations, nonlabored, lungs clear.
CARDIOVASCULAR: Regular rate and rhythm, no murmurs, no rubs.
GI: Soft, nontender, normal BS
MUSCULOSKELETAL: Moves with ease. Well perfused.
SKIN: Warm, dry, pink
PSYCH: Normal mood and affect. Well kept, interactive and appropriate
NEUROLOGIC: Awake, alert and oriented. No focal neurological deficits
Course
<Alicia Jimenez, TELEGRAPH SERVICE CLERK - Last Filed: 03/08/25 15:56>
Orders/Labs/Results
Orders:
Orders
03/08/25 09:09
Complete Blood Count/With Diff Urgent
Comprehensive Metabolic Panel Urgent
03/08/25 10:51
HydrALAZINE [Apresoline] 50 mg PO NOW STA
Abnormal Lab Results
03/08/25
09:09
RBC 3.98 L 10^6/uL
(4.70-6.10)
Hgb 11.7 L g/dL
(13.0-18.0)
Hct 34.6 L %
(39.0-52.0)
Absolute Neuts (auto) 7.0 H 10^3/uL
(1.4-6.5)
Chloride 109 H mmol/L
(98-107)
Carbon Dioxide 16 L mmol/L
(22-30)
BUN 68 H mg/dl
(9-20)
Creatinine 7.2 H* mg/dL
(0.7-1.3)
Glucose 116 H mg/dl
(70-99)
Albumin 5.1 H g/dl
(3.5-5.0)
03/08/25 09:09
03/08/25 09:09
Vital Signs
Initial and Last Documented VS:
Initial Vital Signs
Temp Pulse Resp BP Pulse Ox
98.4 F 109 14 230/154 100
03/08/25 08:51 03/08/25 08:51 03/08/25 08:51 03/08/25 08:51 03/08/25 08:51
Last Documented Vital Signs
Temp Pulse Resp BP Pulse Ox
98.3 F 95 16 204/130 98
03/08/25 11:18 03/08/25 11:18 03/08/25 11:18 03/08/25 11:18 03/08/25 11:18
Blog Writer consulted with Physician
Blog Writer consulted with physician?: Yes
Name of Physician Consulted: Gagan
<Juan Green, DO - Last Filed: >
Orders/Labs/Results
Orders:
Orders
03/08/25 09:09
Complete Blood Count/With Diff Urgent
Comprehensive Metabolic Panel Urgent
03/08/25 10:51
HydrALAZINE [Apresoline] 50 mg PO NOW STA
Abnormal Lab Results
03/08/25
09:09
RBC 3.98 L 10^6/uL
(4.70-6.10)
Hgb 11.7 L g/dL
(13.0-18.0)
Hct 34.6 L %
(39.0-52.0)
Absolute Neuts (auto) 7.0 H 10^3/uL
(1.4-6.5)
Chloride 109 H mmol/L
(98-107)
Carbon Dioxide 16 L mmol/L
(22-30)
BUN 68 H mg/dl
(9-20)
Creatinine 7.2 H* mg/dL
(0.7-1.3)
Glucose 116 H mg/dl
(70-99)
Albumin 5.1 H g/dl
(3.5-5.0)
03/08/25 09:09
03/08/25 09:09
Vital Signs
Initial and Last Documented VS:
Initial Vital Signs
Temp Pulse Resp BP Pulse Ox
98.4 F 109 14 230/154 100
03/08/25 08:51 03/08/25 08:51 03/08/25 08:51 03/08/25 08:51 03/08/25 08:51
Last Documented Vital Signs
Temp Pulse Resp BP Pulse Ox
98.3 F 95 16 204/130 98
03/08/25 11:18 03/08/25 11:18 03/08/25 11:18 03/08/25 11:18 03/08/25 11:18
<Alicia Jimenez TELEGRAPH SERVICE CLERK - Last Filed: 03/08/25 15:56>
MDM/Problems Addressed
MDM/Problems Addressed:
29-year-old male with history of HTN, renal failure on dialysis states he went for his dialysis today but they sent him here for medical clearance. He states he missed his last week's dialysis on Thursday and Thursday, he went and had his right
groin dialysis catheter replaced on Thursday and went for dialysis today. He denies headache, change in vision, chest pain, SOB, abdominal pain, numbness tingling or weakness in his extremities. He states 'I do better when my blood pressure is high,
I do not do well when my blood pressure is in the normal range.'
He goes to [facility] dialysis and he does not know who his electric stop installer there is. I attempted to call their to speak with his electric stop installer but no one answered the phone.
I contacted our electric stop installer Dr. Pathak who agrees with hydralazine 50 mg by mouth and he can go to his dialysis which will also help lower his blood pressure.
Patient states he is on valsartan 80 mg a day and he was told to increase it to 160 mg daily but he has not done so because he 'wanted to use up the rest of his 80 mg tablets' and he just picked up the 160 mg which he will start tomorrow.
<Alicia Jimenez, TELEGRAPH SERVICE CLERK - Last Filed: 03/08/25 15:56>
*Pulse Oximetry
Patient hypoxic: no
*Critical Care Note
Total Time (30-74mins, 75-104mins- exclusive of procedures): Not Applicable
<Juan Green, DO - Last Filed: >
*Pulse Oximetry
SaO2: 100
Oxygen Mode of Delivery: Room air
ED Attending Note
<Juan Green, DO - Last Filed: >
-
Portions of this chart may have been created with voice recognition software.� Occasional wrong word or��sound alike� substitutions may have occurred due to the inherent limitations of voice recognition software.
Discharge Plan
Departure
Patient Disposition: Home (Routine Discharge)
Date of Disposition: 03/08/25
Time of Disposition: 11:03
Patient with high blood pressure during this ER visit?: Yes
Condition: Fair
Discharge Problem:
Asymptomatic hypertensive urgency, ESRD (end stage renal disease) on dialysis
Instructions: High blood pressure emergencies
Prescriptions:
No Action
atorvastatin 40 mg Tablet
40 mg PO DAILY
torsemide 100 mg Tablet
100 mg PO SUTUTHSA
Rx Instructions:
takes on non-dialysis days.
calcium acetate(phosphat bind) 667 mg Capsule
667 mg PO AC
propranolol 20 mg tablet
20 mg PO BID Qty: 60 0RF
valsartan 160 mg Tablet
160 mg PO DAILY
cephalexin 500 mg capsule
500 mg PO DIRECTED
Rx Instructions:
Take 1 cap after HD for 6 weeks
Referrals:
Your dialysis center [Other] - Keep scheduled appt
NONE,* [Family Provider, Internal Medicine]
Activity Restrictions/Additional Instructions:
As we discussed, you were given hydralazine 50 mg for your blood pressure, your dialysis should also help lower your blood pressure.
Start your atorvastatin 160 mg as ordered
You are medically cleared for dialysis
Interventions
Interventions:
*Risk Screen - Suicide Last Done: 03/08/25 08:54
*General Assessment Last Done: 03/08/25 08:54
*Neglect/Abuse Screening Last Done: 03/08/25 08:54
*ED- Fall Risk Assessment Last Done: 03/08/25 11:06
*ED COVID-19 Vaccine History Last Done: 03/08/25 11:06
*ED Influenza Vaccine History Last Done: 03/08/25 11:06
*Nursing Disposition Last Done: 03/08/25 11:18
Discharge Date and Time
Discharge Date/Time: 03/08/25 11:20
Print Language: ALBANIAN
[2025-03-08] MEDS: APRESOLINE 50 MG PO (10:58)
[2025-03-08 11:09] VITALS: BP 204/130
[2025-03-08 11:12] VITALS: BMI 26.7
--- NOTE | 2025-03-08 11:17 | EDRN ---
Reviewed discharge instructions with patient. Verbalized understanding. Ambulated with steady gait to the lobby.
[2025-03-08 11:18] VITALS: BP 204/130
== END 2025-03-08 11:20 | disposition home or self-care (01) ==
LOC: EMR 08:44
PROVIDERS: Emergency Medicine; EMERGENCY PHYSICIAN Emergency Medicine
DX: I16.0 Hypertensive urgency (principal); I12.0 Hypertensive chronic kidney disease with stage 5 chronic kidney disease or end stage renal disease; N18.6 End stage renal disease; Z99.2 Dependence on renal dialysis; F17.200 Nicotine dependence, unspecified, uncomplicated; Z79.899 Other long term (current) drug therapy
CPT/HCPCS: 99283; 80053; 85025

== ENCOUNTER 2025-04-03 07:43 | Emergency (ER) | payer OTHER, SELFPAY ==
[2025-04-03] VITALS (9 sets, daily range): BP systolic 195–238; BP diastolic 122–175; BMI 25.3
--- NOTE | 2025-04-03 08:26 | ED.GENMED ---
History of Present Illness
General
Chief Complaint: Abnormal Lab Value
Source: patient
Exam Limitations: none
Time Seen by Provider: 04/03/25 08:03
Nursing documentation reviewed up to this point in time: agreed with
History of Present Illness
History of Present Illness:
29-year-old male presents emergency department after being sent to the emergency department to get cleared for dialysis. He states he missed 5 dialysis sessions. He misses them because he does not feel good after dialysis. He has renal failure
from hypertension and had not sought medical care throughout his 20s.
Past History
Past History
ED Past Medical History: HTN and Renal failure (Right groin dialysis catheter, dialysis [facility])
ED Past Surgical History: None
Social History
Tobacco: Smoker
Alcohol: None
Personal: Single
Living: with family
Employment: Employed
Review of Systems
Review of Systems
Allergies reviewed?: Yes
All Other Systems: Not applicable
Constitutional: Reports no symptoms
EENT: Reports no symptoms
Respiratory: Reports no symptoms
Cardiac: Reports no symptoms
ABD/GI: Reports no symptoms
: Reports no symptoms
Musculoskeletal: Reports no symptoms
Skin: Reports no symptoms
Neurological: Reports no symptoms
Endocrine: Reports no symptoms
Hematologic/Lymphatic: Reports no symptoms
Psychiatric: Reports no symptoms
Phy Exam
Physical Exam
Physical Exam:
Physical Exam
General: no apparent distress, not acutely ill, hypertensive
Neck: supple. no meningeal signs. normal posterior pharynx
Heart: s1/s2 regular rate and rhythm, no murmur. equal radial
pulses.
HEENT: Pupils equal round reactive to light, EOMI
Lungs: no acute respiratory distress. clear bilaterally
Abdomen: normal bowel sounds. not tender. no CVAT
Neuro: alert and oriented. no focal neurological deficits cranial nerves II through XII intact
Skin: no rash
Psychiatric: well kept. interactive and cooperative
Extremities: no edema. no calf tenderness. negative homans. good distal pulses
Course
Orders/Labs/Results
Orders:
Orders
04/03/25 08:17
IV Insert/Care/Rem.- Treatment PRN
04/03/25 08:32
Complete Blood Count/With Diff Urgent
Comprehensive Metabolic Panel Urgent
Magnesium Urgent
04/03/25 10:03
Labetalol HCl [Trandate] 20 mg IV NOW STA
Abnormal Lab Results
04/03/25
08:32
WBC 11.5 H 10^3/uL
(4.8-10.8)
RBC 4.21 L 10^6/uL
(4.70-6.10)
Hgb 12.4 L g/dL
(13.0-18.0)
Hct 37.8 L %
(39.0-52.0)
MCHC 32.8 L g/dL
(33.0-37.0)
MPV 11.0 H fL
(7.4-10.4)
Absolute Neuts (auto) 7.5 H 10^3/uL
(1.4-6.5)
Absolute Monos (auto) 0.7 H 10^3/uL
(0.1-0.6)
Chloride 109 H mmol/L
(98-107)
Carbon Dioxide 19 L mmol/L
(22-30)
BUN 70 H mg/dl
(9-20)
Creatinine 8.6 H* mg/dL
(0.7-1.3)
Glucose 103 H mg/dl
(70-99)
04/03/25 08:32
04/03/25 08:32
Vital Signs
Initial and Last Documented VS:
Initial Vital Signs
Temp Pulse Resp BP Pulse Ox
97.6 F 109 18 238/175 100
04/03/25 07:49 04/03/25 07:49 04/03/25 07:49 04/03/25 07:49 04/03/25 07:49
Last Documented Vital Signs
Temp Pulse Resp BP Pulse Ox
97.6 F 86 10 205/146 98
04/03/25 07:49 04/03/25 11:00 04/03/25 11:00 04/03/25 11:00 04/03/25 10:00
MDM/Problems Addressed
Differential Diagnosis Includes:
Hypertensive urgency, electrolyte abnormality
MDM/Problems Addressed:
29-year-old male with hypertensive urgency chronic kidney disease. He is asymptomatic. Blood pressure with only mild improvement with labetalol. He would like to leave so he can go to dialysis. His blood pressure does improve after he gets
dialysis. Encouraged him to continue his medications and avoid missing dialysis, as this will contribute to worse illness.
Chronic conditions affecting care: HTN and Kidney disease
Acute Exacerbation and/or Progression of Chronic Illness: HTN and Kidney disease
*Pulse Oximetry
SaO2: 99
Oxygen Mode of Delivery: Room air
Patient hypoxic: no
*Critical Care Note
Total Time (30-74mins, 75-104mins- exclusive of procedures): 30
comment:
Critical care statement: A total of 30 minutes of critical care time was provided for this patient. This includes management of unstable vital signs, evaluation of the patient at bedside, reviewing the patient's pertinent medical records, discussion
with consultants, review of old EKGs and review of pertinent medical records. This time with separate from time utilized to perform the aforementioned documented procedures
Data Reviewed
Review of Other/Old Records Reveals: Labs (Prior chronic kidney disease)
Patient Management
Social determinants of health affecting care: Living situation
Escalation/DeEscalation of care consider admission/obs:
Admission considered, however patient would like to go to dialysis as he states this usually fixes his blood pressure
ED Attending Note
-
Portions of this chart may have been created with voice recognition software.� Occasional wrong word or��sound alike� substitutions may have occurred due to the inherent limitations of voice recognition software.
Discharge Plan
Departure
Patient Disposition: Home (Routine Discharge)
Date of Disposition: 04/03/25
Time of Disposition: 11:11
Patient with high blood pressure during this ER visit?: Yes
Condition: Fair
Discharge Problem:
Asymptomatic hypertensive urgency, Hypertensive chronic kidney disease with stage 5 chronic kidney disease or end stage renal disease, Medical non-compliance, Resistant hypertension
Instructions: Chronic kidney disease, High blood pressure emergencies, BLOOD PRESSURE
Prescriptions:
No Action
atorvastatin 40 mg Tablet
40 mg PO DAILY
torsemide 100 mg Tablet
100 mg PO SUTUTHSA
calcium acetate(phosphat bind) 667 mg Capsule
667 mg PO AC
valsartan 160 mg Tablet
160 mg PO DAILY
Referrals:
NONE,* [Family Provider, Internal Medicine]
Activity Restrictions/Additional Instructions:
Go to get dialysis. Do not miss dialysis. Return for any concerns.
Interventions
Interventions:
*Risk Screen - Suicide Last Done: 04/03/25 07:49
*General Assessment Last Done: 04/03/25 07:49
*Neglect/Abuse Screening Last Done: 04/03/25 07:49
*ED- Fall Risk Assessment Last Done: 04/03/25 08:00
*ED COVID-19 Vaccine History Last Done: 04/03/25 08:00
*ED Influenza Vaccine History Last Done: 04/03/25 08:00
Discharge Date and Time
Print Language: FRENCH
[2025-04-03 09:30] LABS: Hematocrit 37.8 % (39.0-52.0); Hemoglobin 12.4 g/dL (13.0-18.0); Mean Corp Hgb Conc. 32.8 g/dL (33.0-37.0); Mean Corpuscular Volume 89.8 fL (80.0-94.0); Nucleated Red Blood Cells % 0 % (-); Platelet Count 257 10^3/uL (130-400); Red Cell Dist. Width 13.1 % (11.5-14.5)
[2025-04-03 09:53] LABS: ALT (SGPT) 18 U/L (0-50); AST (SGOT) 22 U/L (17-59); Albumin 4.8 g/dl (3.5-5.0); Alkaline Phosphatase 89 U/L (38-126); Blood Urea Nitrogen 70 mg/dl (9-20); Calcium 9.5 mg/dl (8.4-10.2); Carbon Dioxide 19 mmol/L (22-30); Chloride 109 mmol/L (98-107); Estimated Creatinine Clearance 10 ml/min; Glucose 103 mg/dl (70-99); Magnesium 2.0 mg/dl (1.6-2.3); Potassium 5.0 mmol/L (3.5-5.1); Sodium 137 mmol/L (135-145); Total Protein 7.6 g/dl (6.3-8.2); eGFR 7.85
[2025-04-03] MEDS: TRANDATE 20 MG IV (10:08)
== END 2025-04-03 11:21 | disposition home or self-care (01) ==
LOC: EMR 07:43
PROVIDERS: EMERGENCY PHYSICIAN Emergency Medicine
DX: I16.0 Hypertensive urgency (principal); I12.0 Hypertensive chronic kidney disease with stage 5 chronic kidney disease or end stage renal disease; N18.6 End stage renal disease; I1A.0 Resistant hypertension; Z99.2 Dependence on renal dialysis; Z91.158 Patient's noncompliance with renal dialysis for other reason
CPT/HCPCS: 99283; 96374; 80053; 83735; 85025

== ENCOUNTER 2025-04-11 08:14 | Emergency (ER) | payer OTHER, SELFPAY ==
[2025-04-11] VITALS (10 sets, daily range): BP systolic 94–257; BP diastolic 137–178; BMI 25.3
--- NOTE | 2025-04-11 09:16 | ED.GENMED ---
Addendum entered and electronically signed by Javed Dyer DO 04/11/25 13:34:
Patient has been found will try to get him over to [facility] to get his catheter evaluated
Original Note:
History of Present Illness
General
Chief Complaint: Catheter/Tube Problem
Source: patient and records
Exam Limitations: none
Time Seen by Provider: 04/11/25 08:57
Nursing documentation reviewed up to this point in time: agreed with
History of Present Illness
History of Present Illness:
29-year-old male ESRD hypertension noncompliance prior methamphetamine abuse prior bacteremia no dialysis for a month, has a right groin tunneled catheter not functioning apparently, returns to the ER with fatigue shortness of breath nausea
generally feeling unwell severely hypertensive
He tells me his goal today is to get some labs and have his catheter replaced and he will go to dialysis as scheduled
Past History
Past History
ED Past Medical History: HTN and Renal failure (Right groin dialysis catheter, dialysis [facility])
ED Past Surgical History: None
Social History
Tobacco: Smoker
Alcohol: None
Personal: Single
Living: with family
Employment: Employed
Review of Systems
Review of Systems
All Other Systems: Not applicable
Constitutional: Denies fever or fatigue
Respiratory: Reports trouble breathing
Cardiac: Denies chest pain
ABD/GI: Reports nausea and vomiting
Neurological: Reports weakness
Phy Exam
Physical Exam
Physical Exam:
Physical Exam
General: Chronically ill-appearing male vomiting
Neck: Edema around his
Heart: s1/s2 regular rate and rhythm, no murmur. equal radial pulses.
Lungs: no acute respiratory distress. clear bilaterally
Abdomen: Soft
Neuro: alert and oriented. no focal neurological deficits
Skin: no rash
Psychiatric: Cooperative
Extremities: Edema
Course
Orders/Labs/Results
Orders:
Orders
04/11/25 09:03
Electrocardiogram (*1) Stat
Reason for Study: Other
Other Reason for Exam: chest pain
Cardiac Monitoring- Treatment ONCE
EKG- Treatment ONCE
Labetalol HCl [Trandate] 20 mg IV NOW STA
CR Chest Portable - 1 View Urgent
Comment:
Reason For Exam: vomiting bp uppp
Reason Study Needs to be Portable: Unable to Transport
04/11/25 09:26
Complete Blood Count/With Diff Urgent
TSH Urgent
04/11/25 10:01
Case Management Consult ONCE
Case Management Consult: Discharge Planning
Consult Interventional Radiology [IRAD CONSULT] Urgent
Consulting Provider: Sergio Frederick
Was physician already notified: Yes
Procedure being ordered, including laterality if applicable: right groin HD catheter
Acknowledgement that appropriate orders are entered: N/A
04/11/25 10:06
Basic Metabolic Panel Urgent
NT-proBNP Urgent
Troponin I Urgent
04/11/25 10:42
Furosemide [Lasix] 100 mg IV NOW STA
HydrALAZINE [Apresoline] 10 mg IV NOW STA
Abnormal Lab Results
04/11/25 04/11/25
09:26 10:06
RBC 4.24 L 10^6/uL
(4.70-6.10)
Hgb 12.5 L g/dL
(13.0-18.0)
Hct 37.7 L %
(39.0-52.0)
Absolute Neuts (auto) 7.7 H 10^3/uL
(1.4-6.5)
Lymphocytes % 19.8 L %
(20.5-51.1)
Carbon Dioxide 19 L mmol/L
(22-30)
BUN 100 H mg/dl
(9-20)
Creatinine 8.7 H* mg/dL
(0.7-1.3)
Troponin I 0.111 H* ng/ml
04/11/25 09:26
04/11/25 10:06
Vital Signs
Initial and Last Documented VS:
Initial Vital Signs
Temp Pulse Resp BP Pulse Ox
98.2 F 90 16 238/178 100
04/11/25 08:16 04/11/25 08:16 04/11/25 08:16 04/11/25 08:16 04/11/25 08:16
Last Documented Vital Signs
Temp Pulse Resp BP Pulse Ox
98.6 F 89 18 190/137 96
04/11/25 10:55 04/11/25 11:30 04/11/25 11:30 04/11/25 11:27 04/11/25 11:30
MDM/Problems Addressed
Differential Diagnosis Includes:
Noncompliance hypertensive urgency hypertensive emergency acute on chronic or insufficient
MDM/Problems Addressed:
Hypertension
Chronic conditions affecting care: HTN and Kidney disease
Acute Exacerbation and/or Progression of Chronic Illness: HTN and Kidney disease
*Radiology
Radiology exam reviewed: preliminary read by ED provider
*Pulse Oximetry
SaO2: 100
Oxygen Mode of Delivery: Room air
Patient hypoxic: no
*EKG
Interpreted by ED Provider?: Yes
Interpretation: normal
Comparison EKG: no comparison EKG present
Heart Rate: 78
Rate: normal
Rhythm: sinus
QRS Pattern: normal QRS
Ischemia: no ischemia
*Crocodile Farmer Interpretation
Rate: normal
Interpretation: normal
Heart Rate: 78
Rhythm: sinus
*Critical Care Note
Total Time (30-74mins, 75-104mins- exclusive of procedures): 32
Update Note
Update Note:
12:30 PM several discussions with the patient I recommended him being admitted he would clearly want to go home frustrated that he has not had his catheter replaced yet, did reach out to IR patient was on their list would be seen within an hour
I did call the patient home left him a message and told him he was welcome to come back
ED Attending Note
-
Portions of this chart may have been created with voice recognition software.� Occasional wrong word or��sound alike� substitutions may have occurred due to the inherent limitations of voice recognition software.
Discharge Plan
Departure
Patient Disposition: Elopement
Date of Disposition: 04/11/25
Time of Disposition: 12:54
Patient with high blood pressure during this ER visit?: Yes
Condition: Serious
Covid-19: Not Applicable
Discharge Problem:
Hypertensive chronic kidney disease with stage 5 chronic kidney disease or end stage renal disease, Medical non-compliance, Resistant hypertension, ESRD (end stage renal disease) on dialysis
Prescriptions:
No Action
atorvastatin 40 mg Tablet
40 mg PO DAILY
torsemide 100 mg Tablet
100 mg PO SUTUTHSA
calcium acetate(phosphat bind) 667 mg Capsule
667 mg PO AC
valsartan 160 mg Tablet
160 mg PO DAILY
Referrals:
NONE,* [Family Provider, Internal Medicine]
Interventions
Interventions:
*Risk Screen - Suicide Last Done: 04/11/25 08:16
*General Assessment Last Done: 04/11/25 09:39
*Neglect/Abuse Screening Last Done: 04/11/25 08:16
*ED- Fall Risk Assessment Last Done: 04/11/25 09:39
*ED COVID-19 Vaccine History Last Done: 04/11/25 09:39
*ED Influenza Vaccine History Last Done: 04/11/25 09:39
NE-Ldtvqa-Cueqeirjbt Assessment Last Done: 04/11/25 09:36
ED-Male Genitourinary Assessment Last Done: 04/11/25 09:37
Discharge Date and Time
Print Language: SLOVENIAN
[2025-04-11] MEDS: TRANDATE 20 MG IV (09:28)
[2025-04-11 09:41] LABS: Hematocrit 37.7 % (39.0-52.0); Hemoglobin 12.5 g/dL (13.0-18.0); Mean Corp Hgb Conc. 33.2 g/dL (33.0-37.0); Mean Corpuscular Volume 88.9 fL (80.0-94.0); Nucleated Red Blood Cells % 0 % (-); Red Cell Dist. Width 12.4 % (11.5-14.5)
[2025-04-11 10:36] LABS: Blood Urea Nitrogen 100 mg/dl (9-20); Calcium 8.5 mg/dl (8.4-10.2); Carbon Dioxide 19 mmol/L (22-30); Chloride 106 mmol/L (98-107); Estimated Creatinine Clearance 10 ml/min; Glucose 98 mg/dl (70-99); Sodium 137 mmol/L (135-145); eGFR 7.74
[2025-04-11 10:36] LABS: TSH 1.76 uIU/ml (0.47-4.68)
[2025-04-11 10:39] LABS: Troponin I 0.111 ng/ml
[2025-04-11] MEDS: APRESOLINE 10 MG IV (10:50)
[2025-04-11] MEDS: LASIX 100 MG IV (10:51)
--- NOTE | 2025-04-11 11:03 | EDCM ---
CM received consult, reviewed chart and met with pt bedside in ED. Pt lives with his father in 2 story home, has first floor bedroom and full bath.
States he is independent in ADLs, personal care and ambulation at baseline.
He is supposed to go to HD MWF at [facility]. Admits he has not been going for past month. He told me he has been in touch with the HD Unit and plans to return but his dialysis catheter needs to be replaced. Awaiting IR availability to
replace.
Pt did not want me to call his HD Unit, said he would contact them once he has a working catheter.
Dr Dyer update. CM will continue to follow.
--- NOTE | 2025-04-11 12:57 | PTCARENOTE ---
Pt left the department per MD Dyer. MD Dyer called and left message on pts phone. pt did leave with IV in right arm. ore storage drier Belinda Made aware.
--- NOTE | 2025-04-11 13:44 | PTCARENOTE ---
pt returned. MD Dyer aware. pt headed to IR at this time. IV in place. pt AAOX3. refuses cardiopulmonary monitoring; MD Dyer aware.
[2025-04-11] MEDS: ANCEF 10 IV (14:16)
[2025-04-11] MEDS: ZOFRAN 4 MG IV (14:55)
--- NOTE | 2025-04-11 15:19 | PTCARENOTE ---
ABIGAIL note: patient c/o being nauseous and started vomiting on the procedure room table at the end of the procedure. 4 mg IV Zofran given per Dr. Frederick's order. patient stated of feeling better. report given to ED nurse Ben. patient returned to ED.
== END 2025-04-11 15:36 | disposition left against medical advice (07) ==
LOC: EMR 08:14
PROVIDERS: CONSULT PHYSICIAN Radiology Vascular & Interventional Radiology; EMERGENCY PHYSICIAN Emergency Medicine
DX: I12.0 Hypertensive chronic kidney disease with stage 5 chronic kidney disease or end stage renal disease (principal); N18.6 End stage renal disease; Z99.2 Dependence on renal dialysis; I1A.0 Resistant hypertension; F17.200 Nicotine dependence, unspecified, uncomplicated; Z91.158 Patient's noncompliance with renal dialysis for other reason; Z53.29 Procedure and treatment not carried out because of patient's decision for other reasons
CPT/HCPCS: 99291; 96374; 96375; 36581; 71045; 77001; 80048; 83880; 84443; 84484; 85025; 93005